=== PATIENT | female | born 1940 | race Caucasian/White ===

== ENCOUNTER 2023-11-23 14:06 | Inpatient (IN) | payer MEDICARE, OTHER ==
[2023-11-23] MEDS ORDERED: PIPERACILLIN-TAZOBACTAM 3.375 GM in SODIUM CHLORIDE 0.9% 100 ML IVPB STA (14:49)
[2023-11-23] MEDS ORDERED: AZITHROMYCIN 500 MG in SODIUM CHLORIDE 0.9% 250 ML IVPB STA (14:49)
[2023-11-23] MEDS ORDERED: PNEUMONIA PROTOCOL UTILIZED 1 EACH MISC PO PRN (14:49)
--- NOTE | 2023-11-23 14:49 | ED ---
General Adult HPI - General Chief complaint: Shortness of Breath Stated complaint: pneumonia bi-lateral Time Seen by Provider: 11/23/23 14:24 Source: patient, RN/MD, EMS, RN notes reviewed Mode of arrival: EMS Limitations: no limitations - History of Present Illness Initial comments: Patient is a pleasant 83-year-old female presenting to the emergency Department as a transfer from [place] [facility]. Patient came from jail. Patient was treated as an outpatient for pneumonia. Patient previously was on Rocephin and azithromycin. Patient did return to emergency department. Patient was given Zosyn. Patient was transferred for level of care. Patient amiss to having cough and some difficulty in breathing. Patient is overall a poor historian - Related Data Allergies Allergy/AdvReac Type Severity Reaction Status Date / Time No Known Allergies Allergy Verified 11/23/23 14:32 Review of Systems ROS Statement: Those systems with pertinent positive or pertinent negative responses have been documented in the HPI. ROS Other: All systems not noted in ROS Statement are negative. Constitutional: Denies: fever Eyes: Denies: eye pain ENT: Denies: ear pain Respiratory: Reports: as per HPI, cough, dyspnea Cardiovascular: Denies: chest pain Endocrine: Denies: fatigue Gastrointestinal: Denies: abdominal pain General Exam Limitations: no limitations General appearance: alert, in no apparent distress Head exam: Present: normocephalic Eye exam: Present: normal appearance Neck exam: Present: normal inspection Respiratory exam: Present: wheezes. Absent: respiratory distress Cardiovascular Exam: Present: regular rate, normal rhythm GI/Abdominal exam: Present: soft. Absent: tenderness Extremities exam: Present: normal inspection Neurological exam: Present: alert Psychiatric exam: Present: normal affect, normal mood Skin exam: Present: normal color Course Vital Signs 11/23/23 14:25 Temperature 97.5 F L Pulse Rate 57 L Respiratory 22 Rate Blood Pressure 124/70 O2 Sat by Pulse 96 Oximetry Medical Decision Making - Medical Decision Making Was pt. sent in by a medical professional or institution (KENDELL Thomas, COLLECTION SYSTEMS ADMINISTRATOR, urgent care, hospital, or jail...) When possible be specific @ -Patient was sent from nursing facility to Dr. Rosales to our facility Did you speak to anyone other than the patient for history (EMS, parent, family, police, friend...)? What history was obtained from this source @ -I did speak with transferring physician. Did you review nursing and triage notes (agree or disagree)? Why? @ -I reviewed and agree with nursing and triage notes Were old charts reviewed (outside hosp., previous admission, EMS record, old EKG, old radiological studies, urgent care reports/EKG's, jail records)? Report findings @ -Chart reviewed from [facility] Differential Diagnosis (chest pain, altered mental status, abdominal pain women, abdominal pain men, vaginal bleeding, weakness, fever, dyspnea, syncope, headache, dizziness, GI bleed, back pain, seizure, CVA, palpatations, mental health, musculoskeletal)? @ -Differential Dyspnea: Coronary syndrome, arrhythmia, tamponade, asthma, COPD, pulmonary embolism, pneumonia, pneumothorax, pulmonary effusion, anaphylaxis, diabetic ketoacidosis, flailed chest, pulmonary contusion, diaphragmatic rupture, anemia, neuromuscular, this is not meant to be an all-inclusive list. EKG interpreted by me (3pts min.). @ -As above X-rays interpreted by me (1pt min.). @ -None done CT interpreted by me (1pt min.). @ -None done U/S interpreted by me (1pt. min.). @ -None done What testing was considered but not performed or refused? (CT, X-rays, U/S, labs)? Why? @ -None What meds were considered but not given or refused? Why? @ -None Did you discuss the management of the patient with other professionals (pro fessionals i.e. , PA, COLLECTION SYSTEMS ADMINISTRATOR, lab, RT, psych nurse, social media marketing manager, instrument tech, teacher, food safety officer, counseling case manager)? Give summary @ -Case was discussed with Dr. Travis, who will admit covering doctor hollie Was smoking cessation discussed for >3mins.? @ -No Was critical care preformed (if so, how long)? @ -No Were there social determinants of health that impacted care today? How? (Homelessness, low income, unemployed, alcoholism, drug addiction, transportation, low edu. Level, literacy, decrease access to med. care, fdc, rehab)? @ -No Was there de-escalation of care discussed even if they declined (Discuss DNR or withdrawal of care, Hospice)? DNR status @ -No What co-morbidities impacted this encounter? (DM, HTN, Smoking, COPD, CAD, Cancer, CVA, ARF, Chemo, Hep., AIDS, mental health diagnosis, sleep apnea, morbid obesity)? @ -None Was patient admitted / discharged? Hospital course, mention meds given and route, prescriptions, significant lab abnormalities, going to OR and other pertinent info. @ -Patient failed outpatient Rocephin and azithromycin. Patient was given Zosyn prior to arrival. Patient will be admitted. Viral testing will be repeated as they reported -2 days ago. Patient will be admitted. Admission orders written. Undiagnosed new problem with uncertain prognosis? @ -No Drug Therapy requiring intensive monitoring for toxicity (Heparin, Nitro, Insulin, Cardizem)? @ -No Were any procedures done? @ -No Diagnosis/symptom? @ -Multifocal pneumonia Acute, or Chronic, or Acute on Chronic? @ -Acute Uncomplicated (without systemic symptoms) or Complicated (systemic symptoms)? @ -default Side effects of treatment? @ -No Exacerbation, Progression, or Severe Exacerbation? @ -No Poses a threat to life or bodily function? How? (Chest pain, [place], [place], pneumonia, PE, COPD, DKA, ARF, appy, cholecystitis, CVA, Diverticulitis, Homicidal, Suicidal, threat to staff... and all critical care pts) @ -No Disposition Clinical Impression: Multifocal pneumonia Disposition: ADMITTED IP TO THIS HOSP Is patient prescribed a controlled substance at d/c from ED?: No Referrals: None,Stated [Primary Care Provider] - 1-2 days Time of Disposition: 14:49
[2023-11-23] MEDS ORDERED: IPRATROPIUM-ALBUTEROL 3 ML NEB INHALATION PRN (14:54)
[2023-11-23] MEDS: IPRATROPIUM-ALBUTEROL 3 ML NEB INHALATION SCH ×2 (15:05→20:32)
[2023-11-23] MEDS: SODIUM CHLORIDE 0.9% 1,000 ML IV SCH ×2 (15:14→23:55)
[2023-11-23] MEDS ORDERED: bisacodyL 5 MG TABLET.DR PO PRN (21:59)
[2023-11-23] MEDS ORDERED: ACETAMINOPHEN TAB 325 MG TAB PO PRN (21:59)
[2023-11-23] MEDS ORDERED: LOPERAMIDE 2 MG CAP PO PRN (21:59)
--- NOTE | 2023-11-23 23:20 | XR ---
EXAM: XR Chest, 1 View CLINICAL HISTORY: ITS.REASON XR Reason: multifocal pneumonia from outside facility TECHNIQUE: Frontal view of the chest. COMPARISON: No relevant prior studies available. FINDINGS: Lungs: Mild opacity in the right midlung field, likely representing atelectasis. Correlate for mild pneumonia. Pleural space: Unremarkable. No pneumothorax. Heart: Unremarkable. No cardiomegaly. Mediastinum: Unremarkable. Normal mediastinal contour. Bones/joints: Unremarkable. No acute fracture. IMPRESSION: Mild opacity in the right midlung field, likely representing atelectasis. However, correlate for mild pneumonia.
[2023-11-23 23:30] LABS: Basophils % (A) 0 %; Eosinophils % (A) 0 %; HCT 36.2 % (34.0-46.0); HGB 11.9 gm/dL (11.4-16.0); Lymphocytes # (A) 1.1 k/uL (1.0-4.8); Lymphocytes % (A) 10 %; MCH 35.5 pg (25.0-35.0); MCHC 32.8 g/dL (31.0-37.0); MCV 108.3 fL (80.0-100.0); Macrocytosis Marked; Mean Platelet Volume 10.8; Monocytes # (A) 0.6 k/uL (0-1.0); Monocytes % (A) 6 %; Neutrophils # (A) 8.9 k/uL (1.3-7.7); Neutrophils % (A) 82 %; Platelet Count 233 k/uL (150-450); RBC 3.35 m/uL (3.80-5.40); RDW 13.7 % (11.5-15.5); WBC 10.9 k/uL (3.8-10.6)
[2023-11-23 23:46] LABS: ALT 21 U/L (4-34); AST 21 U/L (14-36); African American GFR (CKD) 50 (>60 ml/min/1.73 sqM); Albumin/Globulin Ratio 1.2; Alkaline Phosphatase 132 U/L (38-126); Anion Gap 9 mmol/L; Blood Urea Nitrogen 31 mg/dL (7-17); Calcium 8.8 mg/dL (8.4-10.2); Carbon Dioxide 27 mmol/L (22-30); Chloride 99 mmol/L (98-107); Globulin 2.6 g/dL; Glucose 245 mg/dL (74-99); Non-African American GFR(CKD) 43 (>60 ml/min/1.73 sqM); Potassium 4.7 mmol/L (3.5-5.1); Sodium 135 mmol/L (137-145); Total Bilirubin 0.3 mg/dL (0.2-1.3); Total Protein 5.6 g/dL (6.3-8.2)
[2023-11-23] MEDS: PIPERACILLIN-TAZOBACTAM 3.375 GM in SODIUM CHLORIDE 0.9% 100 ML IVPB SCH (23:52)
[2023-11-23] MEDS: traMADol 50 MG TAB PO SCH (23:56)
[2023-11-23] MEDS: ATORVASTATIN 40 MG TAB PO SCH (23:56)
[2023-11-23] MEDS: LORazepam 0.5 MG TAB PO SCH (23:56)
[2023-11-23] MEDS: CARBIDOPA-LEVODOPA 25-100 MG 1 EACH TAB PO SCH (23:56)
[2023-11-23] MEDS: GABAPENTIN 300 MG CAP PO SCH (23:56)
[2023-11-23] MEDS: SOTALOL 80 MG TAB PO SCH (23:57)
[2023-11-23] MEDS: AMITRIPTYLINE HCL 25 MG TAB PO SCH (23:57)
[2023-11-24 00:32] LABS: Glucose,Whole Blood 224 mg/dL (70-110)
[2023-11-24] MEDS: INSULIN ASPART (NovoLOG) 100 UNIT/ML VIAL SQ SCH ×5 (00:42→21:26)
[2023-11-24 06:18] LABS: Glucose,Whole Blood 134 mg/dL (70-110)
[2023-11-24] MEDS: ACARBOSE 25 MG TAB PO SCH ×3 (06:30→17:39)
[2023-11-24] MEDS: LEVOTHYROXINE 50 MCG TAB PO SCH (06:30)
[2023-11-24] MEDS: glipiZIDE 5 MG TAB PO SCH ×2 (06:30→17:40)
[2023-11-24] MEDS ORDERED: INSULIN ASPART (NovoLOG) 100 UNIT/ML VIAL SQ SCH (07:30)
--- NOTE | 2023-11-24 08:23 | XR ---
EXAMINATION TYPE: XR chest 1V DATE OF EXAM: 11/24/2023 7:15 AM CLINICAL INDICATION:Female, 83 years old with history of pneumonia; [facility] COMPARISON: Chest radiograph from one day prior. TECHNIQUE: XR chest 1V Frontal view of the chest. FINDINGS: Lungs/Pleura: There is no evidence of pleural effusion, focal consolidation, or pneumothorax. Pulmonary vascularity: Unremarkable. Heart/mediastinum: Cardiomediastinal silhouette is unremarkable. Atherosclerotic calcifications are seen in the aorta. Musculoskeletal: No acute osseous pathology. IMPRESSION: Low lung volumes with a generalized hazy appearance which could represent atelectasis versus pulmonar y edema correlate with serum BNP.
--- NOTE | 2023-11-24 08:34 | P.CNPUL ---
History of Present Illness Consult date: 11/24/23 Requesting physician: Kermit Oneill Reason for consult: dyspnea Chief complaint: Shortness of breath and wheezing History of present illness: I am seeing this patient in consultation today to 11/24/2023 on the general medical floor after she was transferred from [facility] with concerns of pneumonia. Patient is a 83-year-old white female with past medical history significant for atrial fibrillation, diabetes mellitus, neuropathy, hyperlipidemia, hypertension, hypothyroidism, among other things. Denies history of COPD or asthma. Patient does reside at [facility]. She is whee lchair-bound. Apparently, she was treated at [facility] for pneumonia about one and 1/2 weeks ago. She did not improve, and was sent to [facility]. CT of the chest at the outside facility showed low lung volumes, scattered groundglass opacities, a focal consolidation within the right middle lobe concerning for developing pneumonia or atelectasis, bibasilar atelectasis, trace pleural left effusion, and likely fluid within the right minor fissure. Patient was transferred to our facility yesterday afternoon. She is currently sitting up in bed, on 3 L per min nasal cannula, in no acute distress. She does not wear home oxygen. She does have persistent congested nonproductive cough. States that her cough was productive with yellow sputum earlier in the week. She denies any fevers, chest pains. She does become dyspneic even with talking. She has audible wheezing. Denies any nausea, vomiting, abdominal pain, diarrhea. Chest x-ray at our facility shows mild opacities in the right midlung likely representing atelectasis, however, underlying developing pneumonia could not be excluded. CBC shows a WBC count of 10.9, hemoglobin 11.9, hematocrit 36.2, platelets 233. BMP has a sodium of 135, potassium 4.7, chloride 99, serum bicarb 27, BUN 31, creatinine 1.18, glucose 245. NT proBNP at outside facility was low. And troponin was not elevated. Normal saline infusing at 100 ML's per hour. Procalcitonin level was 0.09. Negative for influenza, RSV, COVID-19. Urine Legionella antigen pending. Patient was empirically started on a combination of azithromycin and Zosyn. She is currently afebrile. Vital signs are stable. Review of Systems REVIEW OF SYSTEMS: CONSTITUTIONAL: Denies any recent significant weight loss or weight gain. Denies fevers. EYES: Denies change in vision. EARS, NOSE, MOUTH, THROAT: Denies headaches, denies sore throat. CARDIOVASCULAR: Denies chest pain, palpitations or syncopal episodes. RESPIRATORY: See HPI GASTROINTESTINAL: Denies change in appetite, abdominal pain, nausea and vomiting, or diarrhea GENITOURINARY: Denies hematuria, denies infections. MUSKULOSKELETAL: Denies pain, denies swelling. States that she is wheelchair- bound. INTEGUMENTARY: Denies rash, denies eczema. NEUROLOGICAL: Denies recent memory loss, no recent seizure activity. Admits chronic resting tremor PSYCHIATRIC: Denies anxiety, denies depression. HEMATOLOGIC/LYMPHATIC: Denies anemia, denies enlarged lymph node Past Medical History Past Medical History: Atrial Fibrillation, Diabetes Mellitus, Hearing Disorder / Deafness, Hyperlipidemia, Hypertension, Sleep Apnea/CPAP/BIPAP, Thyroid Disorder History of Any Multi-Drug Resistant Organisms: None Reported Past Surgical History: Back Surgery, Hysterectomy Additional Past Surgical History / Comment(s): Bilateral knee replacements, cardiac stents x 3 Past Anesthesia/Blood Transfusion Reactions: No Reported Reaction Past Psychological History: No Psychological Hx Reported Smoking Status: Never smoker Medications and Allergies Home Medications Medication Instructions Recorded Confirmed Type Acarbose 50 mg PO AC-TID 11/23/23 11/23/23 History Acetaminophen [Tylenol] 650 mg PO Q6H PRN 11/23/23 11/23/23 History Amitriptyline HCl [Elavil] 75 mg PO HS 11/23/23 11/23/23 History Artificial Tears-Hypromellose 1 drop BOTH EYES BID 11/23/23 11/23/23 History [Artificial Tear Drops] Aspirin 81 mg PO DAILY 11/23/23 11/23/23 History Atorvastatin [Lipitor] 40 mg PO HS 11/23/23 11/23/23 History Carbidopa-Levodopa 25-100 mg 1 tab PO TID 11/23/23 11/23/23 History [Sinemet 25-100] Cholecalciferol [Vitamin D3 (125 125 mcg PO DAILY 11/23/23 11/23/23 History Mcg = 5000 Iu)] Clopidogrel [Plavix] 75 mg PO DAILY 11/23/23 11/23/23 History Cyanocobalamin [Vitamin B-12] 2,000 mcg PO DAILY 11/23/23 11/23/23 History Cyanocobalamin [Vitamin B-12] 500 mcg PO DAILY 11/23/23 11/23/23 History Dulaglutide [Trulicity] 1.5 mg SQ FR 11/23/23 11/23/23 History Furosemide [Lasix] 10 mg PO DAILY 11/23/23 11/23/23 History Gabapentin 300 mg PO DAILY 11/23/23 11/23/23 History Gabapentin 600 mg PO HS 11/23/23 11/23/23 History Ipratropium-Albuterol Nebulize 3 ml INHALATION RT-DAILY PRN 11/23/23 11/23/23 History [Duoneb 0.5 mg-3 mg/3 ml Soln] Isosorbide Mononitrate ER [Imdur] 60 mg PO DAILY 11/23/23 11/23/23 History LORazepam [Ativan] 0.5 mg PO HS 11/23/23 11/23/23 History Lactobacillus Acidophilus 1 tab PO DAILY 11/23/23 11/23/23 History [Acidophilus] Levothyroxine Sodium [Synthroid] 50 mcg PO DAILY 11/23/23 11/23/23 History Loperamide [Imodium] 2 mg PO TID PRN 11/23/23 11/23/23 History Losartan [Cozaar] 50 mg PO DAILY 11/23/23 11/23/23 History Magnesium Hydroxide [Milk of 2,400 mg PO Q48H PRN 11/23/23 11/23/23 History Magnesia] Magnesium Oxide [Mag-Ox] 400 mg PO DAILY 11/23/23 11/23/23 History Sotalol [Betapace] 80 mg PO BID 11/23/23 11/23/23 History Thiamine [Vitamin B-1] 300 mg PO DAILY 11/23/23 11/23/23 History bisacodyL [Correctol] 10 mg PO DAILY PRN 11/23/23 11/23/23 History cefTRIAXone SODIUM [Ceftriaxone] 2 gm IV Q24H 11/23/23 11/23/23 History guaiFENesin SYRUP 100MG/5ML 200 mg PO Q6HR PRN 11/23/23 11/23/23 History [Robitussin] metFORMIN HCL [Glucophage] 500 mg PO BID 11/23/23 11/23/23 History predniSONE [Deltasone] 40 mg PO DAILY 11/23/23 11/23/23 History traMADol HCl [Ultram] 50 mg PO BID 11/23/23 11/23/23 History Allergies Allergy/AdvReac Type Severity Reaction Status Date / Time No Known Allergies Allergy Verified 11/23/23 15:31 Physical Exam Vitals: Vital Signs Temp Pulse Pulse Resp BP BP Pulse Ox 11/24/23 02:00 97.7 F 62 19 148/72 98 11/23/23 20:44 64 11/23/23 20:32 61 11/23/23 20:00 97.3 F L 63 19 116/44 97 11/23/23 18:51 83 22 147/71 96 11/23/23 15:22 60 11/23/23 15:06 55 L 11/23/23 14:25 97.5 F L 57 L 22 124/70 96 Intake and Output 11/23/23 11/23/23 11/24/23 14:59 22:59 06:59 Other: Weight 106.141 kg 106.141 kg GENERAL EXAM: Alert, 83-year-old obese white female, resting tremor, comfortable in no apparent distress. HEAD: Normocephalic and atraumatic EYES: Normal reaction of pupils, equal size. NOSE: Clear with pink turbinates. THROAT: No erythema or exudates. NECK: No masses, no JVD. CHEST: No chest wall deformity. LUNGS: Equal air entry with expiratory wheezes and rhonchi throughout. On 3 L/m nasal cannula. Congested cough. No conversational dyspnea or accessory muscle use.. CVS: S1 and S2 normal with no audible murmur, irregular rhythm. No extra heart sounds ABDOMEN: No hepatosplenomegaly, active bowel sounds, no guarding or rigidity. SPINE: No scoliosis or deformity SKIN: No rashes CENTRAL NERVOUS SYSTEM: No focal deficits, tone is normal in all 4 extremities. EXTREMITIES: There is no peripheral edema, clubbing, or cyanosis. Peripheral pulses are intact. Results - Laboratory Findings CBC and BMP: 11/23/23 22:50 11/23/23 22:50 Abnormal lab findings: Abnormal Labs 11/23/23 11/23/23 11/24/23 22:50 22:50 00:30 WBC 10.9 H RBC 3.35 L MCV 108.3 H MCH 35.5 H Neutrophils # 8.9 H Macrocytosis Marked A Sodium 135 L BUN 31 H Creatinine 1.18 H Glucose 245 H POC Glucose (mg/dL) 224 H Alkaline Phosphatase 132 H Total Protein 5.6 L Albumin 3.0 L - Diagnostic Findings Chest x-ray: image reviewed CT scan - chest: report reviewed Assessment and Plan Assessment: Acute hypoxemic respiratory failure, possibly secondary to acute bronchitis. Follow up chest x ray demonstrated low lung volumes and likely right midlung atelectasis. Procalcitonin level 0.09. Negative for influenza, RSV, COVID-19. Diabetes mellitus type 2, complicated with diabetic neuropathy Hyperlipidemia Hypertension History of paroxysmal atrial fibrillation Hypothyroidism Resting tremor Morbid obesity, with a BMI of 40.2 kg/m Plan: Patient's medications, labs, chest x-ray reviewed. Chest x-ray shows a mild opacity in the right mid lung field, likely representing atelectasis, developing pneumonia is felt to be less likely. Procalcitonin level was low at 0.09. Patient's currently empirically covered on a combination of azithromycin and Zosyn. Negative for influenza, RSV, COVID-19. Urine Legionella antigen pending. Continue supplemental oxygen and bronchodilators Robitussin added for cough. We will continue to follow and further recommendations are forthcoming. I have personally seen and examined the patient, performed the documentation and the assessment and plan as written. Number of minutes spent on the visit:20 Time with Patient: Greater than 30
[2023-11-24] MEDS ORDERED: CYANOCOBALAMIN 500 MCG TAB PO SCH (09:00)
[2023-11-24] MEDS ORDERED: predniSONE 20 MG TAB PO SCH (09:00)
[2023-11-24] MEDS: IPRATROPIUM-ALBUTEROL 3 ML NEB INHALATION SCH ×4 (09:26→21:41)
[2023-11-24] MEDS: SOTALOL 80 MG TAB PO SCH ×2 (09:38→21:24)
[2023-11-24] MEDS: CARBIDOPA-LEVODOPA 25-100 MG 1 EACH TAB PO SCH ×3 (09:38→22:00)
[2023-11-24] MEDS: CLOPIDOGREL 75 MG TAB PO SCH (09:38)
[2023-11-24] MEDS: ASPIRIN 81 MG PO SCH (09:38)
[2023-11-24] MEDS: PIPERACILLIN-TAZOBACTAM 3.375 GM in SODIUM CHLORIDE 0.9% 100 ML IVPB SCH ×3 (09:38→23:49)
[2023-11-24] MEDS: THIAMINE 100 MG TAB PO SCH (09:39)
[2023-11-24] MEDS: ISOSORBIDE MONONITRATE ER 60 MG TAB.ER.24H PO SCH (09:39)
[2023-11-24] MEDS: CYANOCOBALAMIN 500 MCG TAB PO SCH (09:39)
[2023-11-24] MEDS: traMADol 50 MG TAB PO SCH ×2 (09:40→22:08)
[2023-11-24] MEDS: GABAPENTIN 300 MG CAP PO SCH ×2 (09:40→21:25)
[2023-11-24] MEDS: CHOLECALCIFEROL 125 MCG (5000 IU) TABLET PO SCH (09:40)
[2023-11-24] MEDS: MAGNESIUM OXIDE 400 MG TAB PO SCH (09:40)
[2023-11-24 12:00] LABS: Glucose,Whole Blood 193 mg/dL (70-110)
[2023-11-24] MEDS ORDERED: MAGNESIUM HYDROXIDE 2,400 MG/30 ML CUP PO PRN (12:37)
[2023-11-24] MEDS ORDERED: methylPREDNISolone SOD SUCCI 125 MG/2 ML VIAL IV SCH (12:45)
--- NOTE | 2023-11-24 13:16 | HP ---
HISTORY AND PHYSICAL CHIEF COMPLAINT: Shortness of breath and pneumonia. HISTORY OF PRESENT ILLNESS: This is an 83-year-old woman with a past medical history of multiple medical problems, being followed in [facility] in [place], was treated as outpatient with pneumonia. The patient received Rocephin, Zithromax. The patient was admitted and transferred to [facility] for further evaluation and treatment. Chest x- ray showed bilateral pneumonia, the patient was started on Zosyn. The patient is short of breath and slightly tremulous at this time. There is no history of any fever, rigors, or chills. PAST MEDICAL HISTORY: Reviewed include atrial fibrillation, diabetes mellitus, rest of the history and rest of the chart is also reviewed. HOME MEDICATIONS: Reviewed include Ultram, doses and rest of medications reviewed. ALLERGIES: None. FAMILY HISTORY: No history of heart disease or strokes in the family. SOCIAL HISTORY: No history of smoking or alcohol. REVIEW OF SYSTEMS: A 14-point review is negative except as mentioned earlier. PHYSICAL EXAMINATION: VITAL SIGNS: Pulse is 58, blood pressure 138/60, and respirations 21. HEENT: Conjunctivae normal. NECK: No jugular venous distention. CARDIOVASCULAR: S1, S2 muffled. RESPIRATIONS: Diminished at the bases, bilateral scattered rhonchi, markedly increased. ABDOMEN: Soft, nontender. LEGS: No edema, no swelling. NERVOUS SYSTEM: No focal deficit. LABORATORY DATA: WBC 10.8, MCV 108.3. Other labs are noted. Chest x-ray reviewed personally. ASSESSMENT: 1. Possible COPD acute exacerbation with multifocal pneumonia, possibly gram-negative with failure of outpatient treatment. 2. Atrial fibrillation. 3. Diabetes mellitus, type 2. 4. Hyperlipidemia. 5. Hypertension. 6. Sleep apnea. 7. Multiple medical issues including back surgery. 8. History of CAD, stent. RECOMMENDATIONS AND DISCUSSION: This 83-year-old woman presented with multiple complex medical issues, we will monitor the patient closely. We will intensify the bronchodilator treatment, empiric antibiotics, follow the cultures. I would also recommend D-dimer if it is positive. Recommend the CT angio of the chest. The COVID has been negative, PCR has been negative and further recommendations to follow, see orders for details. Prognosis guarded. Home medications will be continued once they are confirmed. MMODL / IJN: [id number] /
[2023-11-24] MEDS: methylPREDNISolone SOD SUCCI 125 MG/2 ML VIAL IV SCH ×3 (13:31→23:48)
[2023-11-24] MEDS: SODIUM CHLORIDE 0.9% 1,000 ML IV SCH (13:32)
[2023-11-24] MEDS: ARTIFICIAL TEARS-HYPROMELLOSE DROPS 15 ML BTL BOTH EYES SCH ×2 (13:32→21:25)
[2023-11-24 13:47] LABS: African American GFR (CKD) 65 (>60 ml/min/1.73 sqM); Anion Gap 10 mmol/L; Blood Urea Nitrogen 28 mg/dL (7-17); Calcium 9.4 mg/dL (8.4-10.2); Carbon Dioxide 25 mmol/L (22-30); Chloride 101 mmol/L (98-107); Glucose 223 mg/dL (74-99); Non-African American GFR(CKD) 56 (>60 ml/min/1.73 sqM); Sodium 136 mmol/L (137-145)
[2023-11-24 13:49] LABS: Potassium 5.1 mmol/L (3.5-5.1)
--- NOTE | 2023-11-24 13:52 | P.CNPUL ---
History of Present Illness Consult date: 11/24/23 Reason for consult: dyspnea History of present illness: I am seeing this patient in consultation today to 11/24/2023 on the general medical floor after she was transferred from [facility] with concerns of pneumonia. Patient is a 83-year-old white female with past medical history significant for atrial fibrillation, diabetes mellitus, neuropathy, hyperlipidemia, hypertension, hypothyroidism, among other things. Denies history of COPD or asthma. Patient does reside at [facility]. She is wheelchair-bound. Apparently, she was treated at [facility] for pneumonia about one and 1/2 weeks ago. She did not improve, and was sent to [facility]. CT of the chest at the outside facility showed low lung volumes, scattered groundglass opacities, a focal consolidation within the right middle lobe concerning for developing pneumonia or atelectasis, bibasilar atelectasis, trace pleural left effusion, and likely fluid within the right minor fissure. Patient was transferred to our facility yesterday afternoon. She is currently sitting up in bed, on 3 L per min nasal cannula, in no acute distress. She does not wear home oxygen. She does have persistent congested nonproductive cough. States that her cough was productive with yellow sputum earlier in the week. She denies any fevers, chest pains. She does become dyspneic even with talking. She has audible wheezing. Denies any nausea, vomiting, abdominal pain, diarrhea. Chest x-ray at our facility shows mild opacities in the right midlung likely representing atelectasis, however, underlying developing pneumonia could not be excluded. CBC shows a WBC count of 10.9, hemoglobin 11.9, hematocrit 36.2, platelets 233. BMP has a sodium of 135, potassium 4.7, chloride 99, serum bicarb 27, BUN 31, creatinine 1.18, glucose 245. NT proBNP at outside facility was low. And troponin was not elevated. Normal saline infusing at 100 ML's per hour. Procalcitonin level was 0.09. Negative for influenza, RSV, COVID-19. Urine Legionella antigen pending. Patient was empirically started on a combination of azithromycin and Zosyn. She is currently afebrile. Vital signs are stable. Repeat chest x-ray from today shows some atelectatic changes in the right midlung and the left lower lobe. I also had a chance to review the CAT scan of the chest that was done and [facility], and the patient has some atelectatic changes in the right midlung and some chronic atelectatic change in the left lower lobe. No evidence of any pulmonary infection or p neumonia at this point in time. The patient has a low pro-calcitonin level. Nevertheless, the patient is bronchospastic and wheezy. Denies having any previous history of smoking. She is essentially poor historian and she is a [facility] resident who resides in [facility]. Due to concern for pneumonia, the patient was started on a combination of Zosyn and Zithromax. She was also started on DuoNeb nebulized treatments [id number]. Outpatient medications been resumed. The patient is also on Lasix 10 mg by mouth daily. Review of Systems REVIEW OF SYSTEMS: CONSTITUTIONAL: Denies any recent significant weight loss or weight gain. Ian es fevers. EYES: Denies change in vision. EARS, NOSE, MOUTH, THROAT: Denies headaches, denies sore throat. CARDIOVASCULAR: Denies chest pain, palpitations or syncopal episodes. RESPIRATORY: See HPI GASTROINTESTINAL: Denies change in appetite, abdominal pain, nausea and vomiting, or diarrhea GENITOURINARY: Denies hematuria, denies infections. MUSKULOSKELETAL: Denies pain, denies swelling. States that she is wheelchair- bound. INTEGUMENTARY: Denies rash, denies eczema. NEUROLOGICAL: Denies recent memory loss, no recent seizure activity. Admits chronic resting tremor PSYCHIATRIC: Denies anxiety, denies depression. HEMATOLOGIC/LYMPHATIC: Denies anemia, denies enlarged lymph node Past Medical History Past Medical History: Atrial Fibrillation, Diabetes Mellitus, Hearing Disorder / Deafness, Hyperlipidemia, Hypertension, Sleep Apnea/CPAP/BIPAP, Thyroid Disorder History of Any Multi-Drug Resistant Organisms: None Reported Past Surgical History: Back Surgery, Hysterectomy Additional Past Surgical History / Comment(s): Bilateral knee replacements, cardiac stents x 3 Past Anesthesia/Blood Transfusion Reactions: No Reported Reaction Past Psychological History: No Psychological Hx Reported Smoking Status: Never smoker Medications and Allergies Home Medications Medication Instructions Recorded Confirmed Type Acarbose 50 mg PO AC-TID 11/23/23 11/23/23 History Acetaminophen [Tylenol] 650 mg PO Q6H PRN 11/23/23 11/23/23 History Amitriptyline HCl [Elavil] 75 mg PO HS 11/23/23 11/23/23 History Artificial Tears-Hypromellose 1 drop BOTH EYES BID 11/23/23 11/23/23 History [Artificial Tear Drops] Aspirin 81 mg PO DAILY 11/23/23 11/23/23 History Atorvastatin [Lipitor] 40 mg PO HS 11/23/23 11/23/23 History Carbidopa-Levodopa 25-100 mg 1 tab PO TID 11/23/23 11/23/23 History [Sinemet 25-100] Cholecalciferol [Vitamin D3 (125 125 mcg PO DAILY 11/23/23 11/23/23 History Mcg = 5000 Iu)] Clopidogrel [Plavix] 75 mg PO DAILY 11/23/23 11/23/23 History Cyanocobalamin [Vitamin B-12] 2,000 mcg PO DAILY 11/23/23 11/23/23 History Cyanocobalamin [Vitamin B-12] 500 mcg PO DAILY 11/23/23 11/23/23 History Dulaglutide [Trulicity] 1.5 mg SQ FR 11/23/23 11/23/23 History Furosemide [Lasix] 10 mg PO DAILY 11/23/23 11/23/23 History Gabapentin 300 mg PO DAILY 11/23/23 11/23/23 History Gabapentin 600 mg PO HS 11/23/23 11/23/23 History Ipratropium-Albuterol Nebulize 3 ml INHALATION RT-DAILY PRN 11/23/23 11/23/23 History [Duoneb 0.5 mg-3 mg/3 ml Soln] Isosorbide Mononitrate ER [Imdur] 60 mg PO DAILY 11/23/23 11/23/23 History LORazepam [Ativan] 0.5 mg PO HS 11/23/23 11/23/23 History Lactobacillus Acidophilus 1 tab PO DAILY 11/23/23 11/23/23 History [Acidophilus] Levothyroxine Sodium [Synthroid] 50 mcg PO DAILY 11/23/23 11/23/23 History Loperamide [Imodium] 2 mg PO TID PRN 11/23/23 11/23/23 History Losartan [Cozaar] 50 mg PO DAILY 11/23/23 11/23/23 History Magnesium Hydroxide [Milk of 2,400 mg PO Q48H PRN 11/23/23 11/23/23 History Magnesia] Magnesium Oxide [Mag-Ox] 400 mg PO DAILY 11/23/23 11/23/23 History Sotalol [Betapace] 80 mg PO BID 11/23/23 11/23/23 History Thiamine [Vitamin B-1] 300 mg PO DAILY 11/23/23 11/23/23 History bisacodyL [Correctol] 10 mg PO DAILY PRN 11/23/23 11/23/23 History cefTRIAXone SODIUM [Ceftriaxone] 2 gm IV Q24H 11/23/23 11/23/23 History guaiFENesin SYRUP 100MG/5ML 200 mg PO Q6HR PRN 11/23/23 11/23/23 History [Robitussin] metFORMIN HCL [Glucophage] 500 mg PO BID 11/23/23 11/23/23 History predniSONE [Deltasone] 40 mg PO DAILY 11/23/23 11/23/23 History traMADol HCl [Ultram] 50 mg PO BID 11/23/23 11/23/23 History Allergies Allergy/AdvReac Type Severity Reaction Status Date / Time No Known Allergies Allergy Verified 11/23/23 15:31 Physical Exam Vitals: Vital Signs Temp Pulse Pulse Resp BP BP Pulse Ox 11/24/23 02:00 97.7 F 62 19 148/72 98 11/23/23 20:44 64 11/23/23 20:32 61 11/23/23 20:00 97.3 F L 63 19 116/44 97 11/23/23 18:51 83 22 147/71 96 11/23/23 15:22 60 11/23/23 15:06 55 L 11/23/23 14:25 97.5 F L 57 L 22 124/70 96 Intake and Output 11/23/23 11/23/23 11/24/23 14:59 22:59 06:59 Other: Weight 106.141 kg 106.141 kg GENERAL EXAM: Alert, 83-year-old obese white female, resting tremor, comfortable in no apparent distress. HEAD: Normocephalic and atraumatic EYES: Normal reaction of pupils, equal size. NOSE: Clear with pink turbinates. THROAT: No erythema or exudates. NECK: No masses, no JVD. CHEST: No chest wall deformity. LUNGS: Equal air entry with expiratory wheezes and rhonchi throughout. On 3 L/m nasal cannula. Congested cough. No conversational dyspnea or accessory muscle use.. CVS: S1 and S2 normal with no audible murmur, irregular rhythm. No extra heart sounds ABDOMEN: No hepatosplenomegaly, active bowel sounds, no guarding or rigidity. SPINE: No scoliosis or deformity SKIN: No rashes CENTRAL NERVOUS SYSTEM: No focal deficits, tone is normal in all 4 extremities. EXTREMITIES: There is no peripheral edema, clubbing, or cyanosis. Peripheral pulses are intact. Results - Laboratory Findings CBC and BMP: 11/23/23 22:50 11/23/23 22:50 Abnormal lab findings: Abnormal Labs 11/23/23 11/23/23 11/24/23 22:50 22:50 00:30 WBC 10.9 H RBC 3.35 L MCV 108.3 H MCH 35.5 H Neutrophils # 8.9 H Macrocytosis Marked A Sodium 135 L BUN 31 H Creatinine 1.18 H Glucose 245 H POC Glucose (mg/dL) 224 H Alkaline Phosphatase 132 H Total Protein 5.6 L Albumin 3.0 L - Diagnostic Findings Chest x-ray: image reviewed CT scan - chest: report reviewed Assessment and Plan Assessment: Acute on chronic dyspnea with limited atelectatic changes in the right midlung and the left lower lobe without evidence of any consolidation with air space disease. Suspect also changes of atelectatic rather than infectious in nature. The vital screening came back negative and the patient has a nonelevated pro- calcitonin level. The antibiotic coverage at this point is empiric and the patient was covered with a combination of Zithromax and Zosyn. Nevertheless, the patient has a congested cough with active bronchospasm or wheezing. Rule out underlying sick bronchitis. Acute hypoxemic respiratory failure, currently on 2 L of action by nasal cannula Diabetes mellitus type 2, complicated with diabetic neuropathy Hyperlipidemia Hypertension History of paroxysmal atrial fibrillation Hypothyroidism Resting tremor Morbid obesity, with a BMI of 40.2 kg/m Plan: Continue bronchodilators Put the patient on 40 mg of IV Solu-Medrol every 8 hours and monitor the blood sugars Provide the patient senna spirometer Attempt to collect a sputum sample to me what continue the same antibiotic coverage. Low likelihood for infections Suggest a swallow evaluation Robitussin for cough and congestion CAT scan of the chest was reviewed. Chest x-ray was reviewed. We'll continue to follow. Resume all medications from home Past Medical History Past Medical History: Atrial Fibrillation, Diabetes Mellitus, Hearing Disorder / Deafness, Hyperlipidemia, Hypertension, Sleep Apnea/CPAP/BIPAP, Thyroid Disorder History of Any Multi-Drug Resistant Organisms: None Reported Past Surgical History: Back Surgery, Hysterectomy Additional Past Surgical History / Comment(s): Bilateral knee replacements, car diac stents x 3 Past Anesthesia/Blood Transfusion Reactions: No Reported Reaction Past Psychological History: No Psychological Hx Reported Smoking Status: Never smoker Medications and Allergies Home Medications Medication Instructions Recorded Confirmed Type Acarbose 50 mg PO AC-TID 11/23/23 11/23/23 History Acetaminophen [Tylenol] 650 mg PO Q6H PRN 11/23/23 11/23/23 History Amitriptyline HCl [Elavil] 75 mg PO HS 11/23/23 11/23/23 History Artificial Tears-Hypromellose 1 drop BOTH EYES BID 11/23/23 11/23/23 History [Artificial Tear Drops] Aspirin 81 mg PO DAILY 11/23/23 11/23/23 History Atorvastatin [Lipitor] 40 mg PO HS 11/23/23 11/23/23 History Carbidopa-Levodopa 25-100 mg 1 tab PO TID 11/23/23 11/23/23 History [Sinemet 25-100] Cholecalciferol [Vitamin D3 (125 125 mcg PO DAILY 11/23/23 11/23/23 History Mcg = 5000 Iu)] Clopidogrel [Plavix] 75 mg PO DAILY 11/23/23 11/23/23 History Cyanocobalamin [Vitamin B-12] 2,000 mcg PO DAILY 11/23/23 11/23/23 History Cyanocobalamin [Vitamin B-12] 500 mcg PO DAILY 11/23/23 11/23/23 History Dulaglutide [Trulicity] 1.5 mg SQ FR 11/23/23 11/23/23 History Furosemide [Lasix] 10 mg PO DAILY 11/23/23 11/23/23 History Gabapentin 300 mg PO DAILY 11/23/23 11/23/23 History Gabapentin 600 mg PO HS 11/23/23 11/23/23 History Ipratropium-Albuterol Nebulize 3 ml INHALATION RT-DAILY PRN 11/23/23 11/23/23 History [Duoneb 0.5 mg-3 mg/3 ml Soln] Isosorbide Mononitrate ER [Imdur] 60 mg PO DAILY 11/23/23 11/23/23 History LORazepam [Ativan] 0.5 mg PO HS 11/23/23 11/23/23 History Lactobacillus Acidophilus 1 tab PO DAILY 11/23/23 11/23/23 History [Acidophilus] Levothyroxine Sodium [Synthroid] 50 mcg PO DAILY 11/23/23 11/23/23 History Loperamide [Imodium] 2 mg PO TID PRN 11/23/23 11/23/23 History Losartan [Cozaar] 50 mg PO DAILY 11/23/23 11/23/23 History Magnesium Hydroxide [Milk of 2,400 mg PO Q48H PRN 11/23/23 11/23/23 History Magnesia] Magnesium Oxide [Mag-Ox] 400 mg PO DAILY 11/23/23 11/23/23 History Sotalol [Betapace] 80 mg PO BID 11/23/23 11/23/23 History Thiamine [Vitamin B-1] 300 mg PO DAILY 11/23/23 11/23/23 History bisacodyL [Correctol] 10 mg PO DAILY PRN 11/23/23 11/23/23 History cefTRIAXone SODIUM [Ceftriaxone] 2 gm IV Q24H 11/23/23 11/23/23 History guaiFENesin SYRUP 100MG/5ML 200 mg PO Q6HR PRN 11/23/23 11/23/23 History [Robitussin] metFORMIN HCL [Glucophage] 500 mg PO BID 11/23/23 11/23/23 History predniSONE [Deltasone] 40 mg PO DAILY 11/23/23 11/23/23 History traMADol HCl [Ultram] 50 mg PO BID 11/23/23 11/23/23 History Allergies Allergy/AdvReac Type Severity Reaction Status Date / Time No Known Allergies Allergy Verified 11/23/23 15:31 Physical Exam Vitals: Vital Signs Temp Pulse Pulse Resp BP BP Pulse Ox 11/24/23 12:37 60 11/24/23 07:08 97.5 F L 58 L 21 138/66 97 11/24/23 02:00 97.7 F 62 19 148/72 98 11/23/23 20:44 64 11/23/23 20:32 61 11/23/23 20:00 97.3 F L 63 19 116/44 97 11/23/23 18:51 83 22 147/71 96 11/23/23 15:22 60 11/23/23 15:06 55 L 11/23/23 14:25 97.5 F L 57 L 22 124/70 96 Intake and Output 11/23/23 11/24/23 11/24/23 22:59 06:59 14:59 Intake Total 1000 Output Total 250 Balance 750 Intake: Intake, IV Titration 1000 Amount Azithromycin 500 mg In 100 Sodium Chloride 0.9% 250 ml @ 250 mls/hr IVPB ONCE STA Rx#:[id number] Piperacillin-Tazobactam 3 900 .375 gm In Sodium Chloride 0.9% 100 ml @ 200 mls/hr IVPB ONCE STA Rx#:[id number] Output: Urine 250 Other: Weight 106.141 kg Results - Laboratory Findings CBC and BMP: 11/23/23 22:50 11/23/23 22:50 Abnormal lab findings: Abnormal Labs 11/23/23 11/23/23 11/24/23 22:50 22:50 00:30 WBC 10.9 H RBC 3.35 L MCV 108.3 H MCH 35.5 H Neutrophils # 8.9 H Macrocytosis Marked A Sodium 135 L BUN 31 H Creatinine 1.18 H Glucose 245 H POC Glucose (mg/dL) 224 H Alkaline Phosphatase 132 H Total Protein 5.6 L Albumin 3.0 L 11/24/23 11/24/23 06:18 11:59 WBC RBC MCV MCH Neutrophils # Macrocytosis Sodium BUN Creatinine Glucose POC Glucose (mg/dL) 134 H 193 H Alkaline Phosphatase Total Protein Albumin
[2023-11-24] MEDS: AZITHROMYCIN 500 MG in SODIUM CHLORIDE 0.9% 250 ML IVPB SCH (14:31)
[2023-11-24 16:59] LABS: Glucose,Whole Blood 361 mg/dL (70-110)
[2023-11-24 21:05] LABS: Glucose,Whole Blood 318 mg/dL (70-110)
[2023-11-24] MEDS: AMITRIPTYLINE HCL 25 MG TAB PO SCH (21:23)
[2023-11-24] MEDS: LORazepam 0.5 MG TAB PO SCH (21:23)
[2023-11-24] MEDS: ATORVASTATIN 40 MG TAB PO SCH (21:24)
[2023-11-24] MEDS: HEPARIN SODIUM,PORCINE 5,000 UNIT/ML 1 ML VIAL SQ SCH (21:26)
[2023-11-24] MEDS: BUDESONIDE 0.5 MG/2 ML NEBU INHALATION SCH (21:41)
[2023-11-24] MEDS: guaiFENesin SYRUP 100MG/5ML 200 MG/10 ML CUP PO PRN (22:02)
[2023-11-25] MEDS: SODIUM CHLORIDE 0.9% 1,000 ML IV SCH (05:20)
[2023-11-25 06:17] LABS: Glucose,Whole Blood 240 mg/dL (70-110)
[2023-11-25] MEDS: INSULIN ASPART (NovoLOG) 100 UNIT/ML VIAL SQ SCH ×4 (06:29→21:32)
[2023-11-25] MEDS: methylPREDNISolone SOD SUCCI 125 MG/2 ML VIAL IV SCH ×3 (06:30→17:28)
[2023-11-25] MEDS: LEVOTHYROXINE 50 MCG TAB PO SCH (06:30)
[2023-11-25] MEDS: glipiZIDE 5 MG TAB PO SCH ×2 (06:30→17:29)
[2023-11-25] MEDS: ACARBOSE 25 MG TAB PO SCH ×3 (06:30→17:29)
[2023-11-25] MEDS: IPRATROPIUM-ALBUTEROL 3 ML NEB INHALATION SCH ×4 (07:25→18:31)
[2023-11-25] MEDS: BUDESONIDE 0.5 MG/2 ML NEBU INHALATION SCH ×2 (07:25→18:31)
[2023-11-25] MEDS: HEPARIN SODIUM,PORCINE 5,000 UNIT/ML 1 ML VIAL SQ SCH ×2 (08:32→21:03)
[2023-11-25] MEDS: THIAMINE 100 MG TAB PO SCH (08:32)
[2023-11-25] MEDS: CHOLECALCIFEROL 125 MCG (5000 IU) TABLET PO SCH (08:32)
[2023-11-25] MEDS: GABAPENTIN 300 MG CAP PO SCH ×2 (08:33→21:04)
[2023-11-25] MEDS: CYANOCOBALAMIN 500 MCG TAB PO SCH (08:33)
[2023-11-25] MEDS: ISOSORBIDE MONONITRATE ER 60 MG TAB.ER.24H PO SCH (08:33)
[2023-11-25] MEDS: ARTIFICIAL TEARS-HYPROMELLOSE DROPS 15 ML BTL BOTH EYES SCH (08:34)
[2023-11-25] MEDS: CLOPIDOGREL 75 MG TAB PO SCH (08:34)
[2023-11-25] MEDS: CARBIDOPA-LEVODOPA 25-100 MG 1 EACH TAB PO SCH ×3 (08:34→21:05)
[2023-11-25] MEDS: MAGNESIUM OXIDE 400 MG TAB PO SCH (08:34)
[2023-11-25] MEDS: ASPIRIN 81 MG PO SCH (08:34)
[2023-11-25] MEDS: PIPERACILLIN-TAZOBACTAM 3.375 GM in SODIUM CHLORIDE 0.9% 100 ML IVPB SCH ×2 (08:35→16:28)
[2023-11-25] MEDS: SOTALOL 80 MG TAB PO SCH ×2 (08:35→21:04)
[2023-11-25] MEDS: FUROSEMIDE 10 MG TAB PO SCH (08:36)
[2023-11-25] MEDS: LACTOBACILLUS ACIDOPHILUS/PECT 1 EACH CAPSULE PO SCH (08:42)
[2023-11-25] MEDS: AZITHROMYCIN 500 MG in SODIUM CHLORIDE 0.9% 250 ML IVPB SCH (08:43)
[2023-11-25] MEDS: traMADol 50 MG TAB PO SCH (08:43)
[2023-11-25] MEDS: LOSARTAN 50 MG TAB PO SCH (08:43)
[2023-11-25] MEDS ORDERED: DEXTROSE 50% SYRINGE 50 ML IVP PRN ×2 (10:06)
[2023-11-25 10:58] LABS: HCT 34.6 % (37.2-46.3); HGB 11.1 g/dL (12.0-15.0); MCH 34.4 pg (27.0-32.0); MCHC 32.1 g/dL (32.0-37.0); MCV 107.1 FL (80.0-97.0); Mean Platelet Volume 12.5 FL (9.5-12.2); NRBC Per 100 WBC 0 X 10*3/uL (0.00-0.01); Platelet Count 209 X 10*3/uL (140-440); RBC 3.23 X 10*6/uL (4.10-5.20); RDW 13.5 % (11.5-14.5)
[2023-11-25 11:13] LABS: Calcium 9.2 mg/dL (8.7-10.3); Carbon Dioxide 26.8 mmol/L (21.6-31.8); Chloride 102 mmol/L (96-109); Glucose 217 mg/dL (70-110); Potassium 4.9 mmol/L (3.5-5.5); Sodium 136 mmol/L (135-145)
[2023-11-25 11:26] LABS: Glucose,Whole Blood 246 mg/dL (70-110)
[2023-11-25 11:52] LABS: Basophils # (A) 0.01 X 10*3/uL (0.00-0.10); Basophils % (A) 0.1 %; Eosinophils # (A) 0 X 10*3/uL (0.04-0.35); Eosinophils % (A) 0 %; Lymphocytes # (A) 0.81 X 10*3/uL (0.90-5.00); Lymphocytes % (A) 7.6 %; Macrocytosis (M) 2+; Monocytes % (A) 4.7 %; Neutrophils # (A) 9.34 X 10*3/uL (1.80-7.70); Neutrophils % (A) 87.2 %
[2023-11-25] MEDS: INSULIN DETEMIR (LEVEMIR) 100 UNIT/ML SYR SQ SCH (12:42)
--- NOTE | 2023-11-25 13:59 | P.PN ---
Subjective Progress Note Date: 11/25/23 I am seeing this patient in consultation today to 11/24/2023 on the general medical floor after she was transferred from [facility] with concerns of pneumonia. Patient is a 83-year-old white female with past medical history significant for atrial fibrillation, diabetes mellitus, neuropathy, hy perlipidemia, hypertension, hypothyroidism, among other things. Denies history of COPD or asthma. Patient does reside at [facility]. She is wheelchair- bound. Apparently, she was treated at [facility] for pneumonia about one and 1/2 weeks ago. She did not improve, and was sent to [facility]. CT of the chest at the outside facility showed low lung volumes, scattered groundglass opacities, a focal consolidation within the right middle lobe concerning for developing pneumonia or atelectasis, bibasilar atelectasis, trace pleural left effusion, and likely fluid within the right minor fissure. Patient was transferred to our facility yesterday afternoon. She is currently sitting up in bed, on 3 L per min nasal cannula, in no acute distress. She does not wear home oxygen. She does have persistent congested nonproductive cough. States that her cough was productive with yellow sputum earlier in the week. She denies any fevers, chest pains. She does become dyspneic even with talking. She has audible wheezing. Denies any nausea, vomiting, abdominal pain, diarrhea. Chest x-ray at our facility shows mild opacities in the right midlung likely representing atelectasis, however, underlying developing pneumonia could not be excluded. CBC shows a WBC count of 10.9, hemoglobin 11.9, hematocrit 36.2, platelets 233. BMP has a sodium of 135, potassium 4.7, chloride 99, serum bicarb 27, BUN 31, creatinine 1.18, glucose 245. NT proBNP at outside facility was low. And troponin was not elevated. Normal saline infusing at 100 ML's per hour. Procalcitonin level was 0.09. Negative for influenza, RSV, COVID-19. Urine Legionella antigen pending. Patient was empirically started on a combination of azithromycin and Zosyn. She is currently afebrile. Vital signs are stable. Repeat chest x-ray from today shows some atelectatic changes in the right midlung and the left lower lobe. I also had a chance to review the CAT scan of the chest that was done and [facility], and the patient has some atelectatic changes in the right midlung and some chronic atelectatic change in the left lower lobe. No evidence of any pulmonary infection or pneumonia at this point in time. The patient has a low pro-calcitonin level. Nevertheless, the patient is bronchospastic and wheezy. Denies having any previous history of smoking. She is essentially poor historian and she is a custodial resident who resides in [facility]. Due to concern for pneumonia, the patient was started on a combination of Zosyn and Zithromax. She was also started on DuoNeb nebulized treatments [id number]. Outpatient medications been resumed. The patient is also on Lasix 10 mg by mouth daily. On today's evaluation of 11/25/2023, lymphs seeing the patient for a follow-up. The patient is clinically stable. Nontender worsening in the rest or status. In fact, the patient is feeling slightly short of breath. She has a congested cough. Unable to bring up much of sputum. She is currently on broad-spectrum antibiotics and the patient is on a combination of Zosyn and vancomycin. She is also on bronchodilators and steroids and IV Solu-Medrol is being admitted at a dose of 60 mg IV push every [address] hours[address] CAT scan of the chest showed some atelectatic changes in lung bases bilaterally. No clear consolidation or airspace disease. She is afebrile. She has a echoes of 10 with a hemoglobin of 11.1 and a platelet count of 219. Sodium is at 136, BUN is at 22 with a creatinine of 1 and the rest of the electrolytes are within normal limits. She is unable to give a sputum sample. The patient is on 3 L of O2 nasal cannula with a pulse ox of 99%. She is hemodynamically stable. Objective - Vital Signs Vital signs: Vital Signs Temp 96.8 F L 11/25/23 07:34 Pulse 52 L 11/25/23 07:41 Resp 19 11/25/23 07:34 BP 159/65 11/25/23 07:34 Pulse Ox 100 11/25/23 07:34 FiO2 Intake & Output 11/24/23 11/25/23 11/25/23 18:59 06:59 18:59 Output Total 200 Balance -200 Output: Urine 200 Other: Voiding Method External Catheter External Catheter # Voids 2 # Bowel Movements 1 - Exam GENERAL EXAM: Alert, 83-year-old obese white female, resting tremor, comfortable in no apparent distress. The patient remains on 3 L of oxygen nasal cannula HEAD: Normocephalic and atraumatic EYES: Normal reaction of pupils, equal size. NOSE: Clear with pink turbinates. THROAT: No erythema or exudates. NECK: No masses, no JVD. CHEST: No chest wall deformity. LUNGS: Equal air entry with expiratory wheezes and rhonchi throughout. Congested cough. No conversational dyspnea or accessory muscle use.. CVS: S1 and S2 normal with no audible murmur, irregular rhythm. No extra heart sounds ABDOMEN: No hepatosplenomegaly, active bowel sounds, no guarding or rigidity. SPINE: No scoliosis or deformity SKIN: No rashes CENTRAL NERVOUS SYSTEM: No focal deficits, tone is normal in all 4 extremities. EXTREMITIES: There is no peripheral edema, clubbing, or cyanosis. Peripheral pulses are intact. - Labs CBC & Chem 7: 11/25/23 06:15 11/25/23 06:15 Labs: Abnormal Lab Results - Last 24 Hours (Table) 11/24/23 11/24/23 11/24/23 Range/Units 11:59 12:58 12:58 WBC (4.50-10.00) X 10*3/uL RBC (4.10-5.20) X 10*6/uL Hgb (12.0-15.0) g/dL Hct (37.2-46.3) % MCV (80.0-97.0) FL MCH (27.0-32.0) pg MPV (9.5-12.2) FL D-Dimer 0.77 H (<0.60) mg/L FEU Sodium 136 L (137-145) mmol/L BUN 28 H (7-17) mg/dL Est GFR (CKD-EPI) (>=60) BUN/Creatinine Ratio (12.00-20.00) Ratio Glucose 223 H (74-99) mg/dL POC Glucose (mg/dL) 193 H (70-110) mg/dL 11/24/23 11/24/23 11/25/23 Range/Units 16:58 21:03 06:15 WBC 10.70 H (4.50-10.00) X 10*3/uL RBC 3.23 L (4.10-5.20) X 10*6/uL Hgb 11.1 L (12.0-15.0) g/dL Hct 34.6 L (37.2-46.3) % MCV 107.1 H (80.0-97.0) FL MCH 34.4 H (27.0-32.0) pg MPV 12.5 H (9.5-12.2) FL D-Dimer (<0.60) mg/L FEU Sodium (137-145) mmol/L BUN (7-17) mg/dL Est GFR (CKD-EPI) (>=60) BUN/Creatinine Ratio (12.00-20.00) Ratio Glucose (74-99) mg/dL POC Glucose (mg/dL) 361 H 318 H (70-110) mg/dL 11/25/23 11/25/23 11/25/23 Range/Units 06:15 06:15 11:25 WBC (4.50-10.00) X 10*3/uL RBC (4.10-5.20) X 10*6/uL Hgb (12.0-15.0) g/dL Hct (37.2-46.3) % MCV (80.0-97.0) FL MCH (27.0-32.0) pg MPV (9.5-12.2) FL D-Dimer (<0.60) mg/L FEU Sodium (137-145) mmol/L BUN (7-17) mg/dL Est GFR (CKD-EPI) 56 L (>=60) BUN/Creatinine Ratio 22.00 H (12.00-20.00) Ratio Glucose 217 H (74-99) mg/dL POC Glucose (mg/dL) 240 H 246 H (70-110) mg/dL Assessment and Plan Plan: Acute on chronic dyspnea with limited atelectatic changes in the right midlung and the left lower lobe without evidence of any consolidation with air space disease. Suspect also changes of atelectatic rather than infectious in nature. The vital screening came back negative and the patient has a nonelevated pro- calcitonin level. The antibiotic coverage at this point is empiric and the patient was covered with a combination of Zithromax and Zosyn. Nevertheless, the patient has a congested cough with active bronchospasm or wheezing. Rule out underlying tracheobronchitis in addition to a component of tracheal bronchomalacia. Acute hypoxemic respiratory failure, currently on 3 L of action by nasal cannula Diabetes mellitus type 2, complicated with diabetic neuropathy Hyperlipidemia Hypertension History of paroxysmal atrial fibrillation Hypothyroidism Resting tremor Morbid obesity, with a BMI of 40.2 kg/m Plan: The patient may have some tracheal bronchomalacia was mucus retention. She has atelectatic change in the lung bases. She reports some modest improvement. Clinically, she is stable and she is more coherent compared to yesterday. Continue bronchodilators Put the patient on 60 mg mg of IV Solu-Medrol every 6 hours and monitor the blood sugars Provide the patient senna spirometer Attempt to collect a sputum sample to me what continue the same antibiotic coverage. Low likelihood for infections Suggest a swallow evaluation Robitussin for cough and congestion CAT scan of the chest was reviewed. Chest x-ray was reviewed. We'll continue to follow. Resume all medications from home May consider bronchoscopy at the later stage if no improvement in her cough and chest congestion.
[2023-11-25] MEDS: guaiFENesin SYRUP 100MG/5ML 200 MG/10 ML CUP PO PRN (16:28)
[2023-11-25 16:49] LABS: Glucose,Whole Blood 249 mg/dL (70-110)
[2023-11-25 20:07] LABS: Glucose,Whole Blood 276 mg/dL (70-110)
[2023-11-25] MEDS: AMITRIPTYLINE HCL 25 MG TAB PO SCH (21:04)
[2023-11-25] MEDS: ATORVASTATIN 40 MG TAB PO SCH (21:05)
[2023-11-25] MEDS: LORazepam 0.5 MG TAB PO SCH (21:05)
--- NOTE | 2023-11-25 23:27 | P.PN ---
Subjective Progress Note Date: 11/25/23 Patient is an 83 year old female admitted for pneumonia sent from [place]. Patient was treated outpatient and had minimal improvement. Chest xray reveals a right mild lung infiltrate with atelectasis at the left lung base. Patient has poor inspiratory effort and weak cough unable to clear the secretions. She remains on zosyn and pulmonary following. Patient will be considered for bronchoscopy. Viral testing negative for rsv, influenza or covid, legionella is negative and mycoplasma currently pending. Remains on room air. Review of Systems Constitutional: Denied any fatigue denied any fever. Cardio vascular: denied any chest pain, palpitations Gastrointestinal: denied any nausea, vomiting, diarrhea Pulmonary: Denied any shortness of breath cough Neurologic denied any new focal deficits All inpatient medications were reviewed and appropriate changes in these medications as dictated in the interval history and assessment and plan. PHYSICAL EXAMINATION: GENERAL: The patient is alert and oriented x3, not in any acute distress. Well developed, well nourished. HEENT: Pupils are round and equally reacting to light. EOMI. No scleral icterus. No conjunctival pallor. Normocephalic, atraumatic. No pharyngeal erythema. No thyromegaly. CARDIOVASCULAR: S1 and S2 present. No murmurs, rubs, or gallops. PULMONARY: Bibasilar crackles and scattered wheezing. Congested cough. ABDOMEN: Soft, nontender, nondistended, normoactive bowel sounds. No palpable organomegaly. MUSCULOSKELETAL: No joint swelling or deformity. EXTREMITIES: No cyanosis, clubbing, or pedal edema. NEUROLOGICAL: Gross neurological examination did not reveal any focal deficits. Diffuse weakness. SKIN: No rashes. Assessment and Plan Bilateral atelectasis in the right mid lung and left lower lobe, patient continu es on empiric antibiotic coverage although procalcitonin level is normal. Acute tracheobronchitis being treated with systemic steroids and patient is encouraged to use incentive spirometer 10 x an hour while awake. Patient is reaching 500. Acute hypoxemic respiratory failure secondary to above History of atrial fibrillation, paroxysmal not anticoagulated Diabetes Mellitus type 2 continues on sliding scale insulin and levemir will be added for the steroid induced hyperglycemia Hyperlipidemia continues on lipitor Hypertension continues on antihypertensives Sleep apnea Hypothyroidism Obesity History of coronary artery disease and prior cardiac stenting GI prophylaxis DVT prophylaxis: Subcu heparin PT/OT consultation in place. Pulmonary services following. The impression and plan of care has been dictated by Jenifer Ibarra Nurse Practitioner as directed. Dr. Diogenes MD I have performed a history and physical examination and medical decision making of this patient, discussed the same with the dictator, and agree with the dictators assessment and plan as written, documented as a scribe. Based on total visit time, I have performed more than 50% of this visit. Objective - Vital Signs Vital signs: Vital Signs Temp 96.8 F L 11/25/23 07:34 Pulse 52 L 11/25/23 07:41 Resp 19 11/25/23 07:34 BP 159/65 11/25/23 07:34 Pulse Ox 100 11/25/23 07:34 FiO2 Intake & Output 11/24/23 11/25/23 11/25/23 18:59 06:59 18:59 Output Total 200 Balance -200 Output: Urine 200 Other: Voiding Method External Catheter External Catheter # Voids 2 # Bowel Movements 1 - Labs CBC & Chem 7: 11/25/23 06:15 11/25/23 06:15 Labs: Abnormal Lab Results - Last 24 Hours (Table) 11/24/23 11/24/23 11/24/23 Range/Units 11:59 12:58 12:58 D-Dimer 0.77 H (<0.60) mg/L FEU Sodium 136 L (137-145) mmol/L BUN 28 H (7-17) mg/dL Glucose 223 H (74-99) mg/dL POC Glucose (mg/dL) 193 H (70-110) mg/dL 11/24/23 11/24/23 11/25/23 Range/Units 16:58 21:03 06:15 D-Dimer (<0.60) mg/L FEU Sodium (137-145) mmol/L BUN (7-17) mg/dL Glucose (74-99) mg/dL POC Glucose (mg/dL) 361 H 318 H 240 H (70-110) mg/dL Assessment and Plan Time with Patient: Less than 30
[2023-11-26] MEDS: methylPREDNISolone SOD SUCCI 125 MG/2 ML VIAL IV SCH ×5 (00:10→23:25)
[2023-11-26] MEDS: PIPERACILLIN-TAZOBACTAM 3.375 GM in SODIUM CHLORIDE 0.9% 100 ML IVPB SCH ×4 (00:11→23:23)
[2023-11-26] MEDS: ARTIFICIAL TEARS-HYPROMELLOSE DROPS 15 ML BTL BOTH EYES SCH ×3 (00:12→20:41)
[2023-11-26] MEDS: traMADol 50 MG TAB PO SCH ×3 (00:12→20:40)
[2023-11-26] MEDS: SODIUM CHLORIDE 0.9% 1,000 ML IV SCH ×2 (02:23→23:31)
[2023-11-26] MEDS: guaiFENesin SYRUP 100MG/5ML 200 MG/10 ML CUP PO PRN (05:00)
[2023-11-26 05:36] LABS: Glucose,Whole Blood 207 mg/dL (70-110)
[2023-11-26] MEDS: LEVOTHYROXINE 50 MCG TAB PO SCH (06:48)
[2023-11-26] MEDS: INSULIN DETEMIR (LEVEMIR) 100 UNIT/ML SYR SQ SCH ×2 (06:48→21:00)
[2023-11-26] MEDS: INSULIN ASPART (NovoLOG) 100 UNIT/ML VIAL SQ SCH ×5 (06:48→20:38)
[2023-11-26] MEDS: glipiZIDE 5 MG TAB PO SCH ×2 (06:48→16:43)
[2023-11-26] MEDS: ACARBOSE 25 MG TAB PO SCH ×3 (06:49→16:43)
[2023-11-26] MEDS ORDERED: NON FORMULARY DRUG (Dulaglutide [Trulicity] 1.5 MG/0.5 ML Each) SQ SCH (09:00)
[2023-11-26] MEDS: BUDESONIDE 0.5 MG/2 ML NEBU INHALATION SCH ×2 (09:12→21:14)
[2023-11-26] MEDS: IPRATROPIUM-ALBUTEROL 3 ML NEB INHALATION SCH ×4 (09:12→21:15)
[2023-11-26] MEDS: CYANOCOBALAMIN 500 MCG TAB PO SCH (10:21)
[2023-11-26] MEDS: THIAMINE 100 MG TAB PO SCH (10:21)
[2023-11-26] MEDS: ASPIRIN 81 MG PO SCH (10:21)
[2023-11-26] MEDS: ISOSORBIDE MONONITRATE ER 60 MG TAB.ER.24H PO SCH (10:21)
[2023-11-26] MEDS: GABAPENTIN 300 MG CAP PO SCH ×2 (10:21→20:38)
[2023-11-26] MEDS: MAGNESIUM OXIDE 400 MG TAB PO SCH (10:21)
[2023-11-26] MEDS: CLOPIDOGREL 75 MG TAB PO SCH (10:21)
[2023-11-26] MEDS: CHOLECALCIFEROL 125 MCG (5000 IU) TABLET PO SCH (10:22)
[2023-11-26] MEDS: SOTALOL 80 MG TAB PO SCH ×2 (10:23→20:40)
[2023-11-26] MEDS: HEPARIN SODIUM,PORCINE 5,000 UNIT/ML 1 ML VIAL SQ SCH ×2 (10:23→20:39)
[2023-11-26] MEDS: LOSARTAN 50 MG TAB PO SCH (10:23)
[2023-11-26] MEDS: CARBIDOPA-LEVODOPA 25-100 MG 1 EACH TAB PO SCH ×3 (10:24→20:39)
[2023-11-26] MEDS: LACTOBACILLUS ACIDOPHILUS/PECT 1 EACH CAPSULE PO SCH (10:24)
[2023-11-26] MEDS: FUROSEMIDE 10 MG TAB PO SCH (10:26)
[2023-11-26 11:42] LABS: Glucose,Whole Blood 225 mg/dL (70-110)
--- NOTE | 2023-11-26 15:46 | P.PN ---
Subjective Progress Note Date: 11/26/23 Patient is an 83 year old female admitted for pneumonia sent from [place]. Patient was treated outpatient and had minimal improvement. Chest xray reveals a right mild lung infiltrate with atelectasis at the left lung base. Patient has poor inspiratory effort and weak cough unable to clear the secretions. She remains on zosyn and pulmonary following. Patient will be considered for bronchoscopy. Viral testing negative for rsv, influenza or covid, legionella is negative and mycoplasma currently pending. Remains on room air. 11/26/2023 Patient is evaluated today sitting up in bed. Has increased congestion since yesterday. Remains on IV zosyn and IV solumedrol. Patient was evaluated by speech therapy diet down graded to dysphagia level 3 chopped and unable to rule out silent aspiration. For this reason patient going for MBS today. Review of Systems Constitutional: Denied any fatigue denied any fever. Cardio vascular: denied any chest pain, palpitations Gastrointestinal: denied any nausea, vomiting, diarrhea Pulmonary: Denies shortness of breath, reports cough Neurologic denied any new focal deficits All inpatient medications were reviewed and appropriate changes in these medications as dictated in the interval history and assessment and plan. PHYSICAL EXAMINATION: GENERAL: The patient is alert and oriented x3, not in any acute distress. Well developed, well nourished. HEENT: Pupils are round and equally reacting to light. EOMI. No scleral icterus. No conjunctival pallor. Normocephalic, atraumatic. No pharyngeal erythema. No thyromegaly. CARDIOVASCULAR: S1 and S2 present. No murmurs, rubs, or gallops. PULMONARY: Bibasilar crackles and scattered wheezing. Congested cough. ABDOMEN: Soft, nontender, nondistended, normoactive bowel sounds. No palpable organomegaly. MUSCULOSKELETAL: No joint swelling or deformity. EXTREMITIES: No cyanosis, clubbing, or pedal edema. NEUROLOGICAL: Gross neurological examination did not reveal any focal deficits. Diffuse weakness. SKIN: No rashes. Assessment and Plan -Bilateral atelectasis in the right mid lung and left lower lobe, patient continues on empiric antibiotic coverage although procalcitonin level is normal. Acute tracheobronchitis being treated with systemic steroids and patient is encouraged to use incentive spirometer 10 x an hour while awake. Patient is reaching 500. -Acute hypoxemic respiratory failure secondary to above wean oxygen as tolerated patient with oxygen saturations of 98% on 3L of oxygen. -Dysphagia downgraded to chopped diet, unable to rule out silent aspiration with bed side swallow evaluation and patient scheduled to undergo MBS today. -History of atrial fibrillation, paroxysmal not anticoagulated -Diabetes Mellitus type 2 continues on sliding scale insulin and levemir for the steroid induced hyperglycemia -Hyperlipidemia continues on lipitor -Hypertension continues on antihypertensives -Sleep apnea -Hypothyroidism -Obesity -History of coronary artery disease and prior cardiac stenting GI prophylaxis DVT prophylaxis: Subcu heparin PT/OT consultation in place. Pulmonary services following. Patient will undergo MBS today. Aspiration precautions in place. [facility] to [facility] when stable. The impression and plan of care has been dictated by Jenifer Ibarra Nurse Practitioner as directed. Dr. Diogenes MD I have performed a history and physical examination and medical decision making of this patient, discussed the same with the dictator, and agree with the dictators assessment and plan as written, documented as a scribe. Based on total visit time, I have performed more than 50% of this visit. Objective - Vital Signs Vital signs: Vital Signs Temp 97.6 F 11/26/23 07:01 Pulse 52 L 11/26/23 09:28 Resp 21 11/26/23 07:01 BP 148/72 11/26/23 09:28 Pulse Ox 100 11/26/23 07:01 FiO2 Intake & Output 11/25/23 11/26/23 11/26/23 18:59 06:59 18:59 Other: # Voids 1 3 1 # Bowel Movements 1 1 1 - Labs CBC & Chem 7: 11/25/23 06:15 11/25/23 06:15 Labs: Abnormal Lab Results - Last 24 Hours (Table) 11/23/23 11/25/23 11/25/23 Range/Units 22:50 06:15 06:15 WBC 10.70 H (4.50-10.00) X 10*3/uL RBC 3.23 L (4.10-5.20) X 10*6/uL Hgb 11.1 L (12.0-15.0) g/dL Hct 34.6 L (37.2-46.3) % MCV 107.1 H (80.0-97.0) FL MCH 34.4 H (27.0-32.0) pg MPV 12.5 H (9.5-12.2) FL Neutrophils # 9.34 H (1.80-7.70) X 10*3/uL Lymphocytes # 0.81 L (0.90-5.00) X 10*3/uL Eosinophils # 0 L (0.04-0.35) X 10*3/uL Macrocytosis (manual) 2+ A Est GFR (CKD-EPI) 56 L (>=60) BUN/Creatinine Ratio 22.00 H (12.00-20.00) Ratio Glucose 217 H (70-110) mg/dL POC Glucose (mg/dL) (70-110) mg/dL Hemoglobin A1c 7.4 H (<=6.0) % 11/25/23 11/25/23 11/25/23 Range/Units 11:25 16:48 20:06 WBC (4.50-10.00) X 10*3/uL RBC (4.10-5.20) X 10*6/uL Hgb (12.0-15.0) g/dL Hct (37.2-46.3) % MCV (80.0-97.0) FL MCH (27.0-32.0) pg MPV (9.5-12.2) FL Neutrophils # (1.80-7.70) X 10*3/uL Lymphocytes # (0.90-5.00) X 10*3/uL Eosinophils # (0.04-0.35) X 10*3/uL Macrocytosis (manual) Est GFR (CKD-EPI) (>=60) BUN/Creatinine Ratio (12.00-20.00) Ratio Glucose (70-110) mg/dL POC Glucose (mg/dL) 246 H 249 H 276 H (70-110) mg/dL Hemoglobin A1c (<=6.0) % 11/26/23 Range/Units 05:34 WBC (4.50-10.00) X 10*3/uL RBC (4.10-5.20) X 10*6/uL Hgb (12.0-15.0) g/dL Hct (37.2-46.3) % MCV (80.0-97.0) FL MCH (27.0-32.0) pg MPV (9.5-12.2) FL Neutrophils # (1.80-7.70) X 10*3/uL Lymphocytes # (0.90-5.00) X 10*3/uL Eosinophils # (0.04-0.35) X 10*3/uL Macrocytosis (manual) Est GFR (CKD-EPI) (>=60) BUN/Creatinine Ratio (12.00-20.00) Ratio Glucose (70-110) mg/dL POC Glucose (mg/dL) 207 H (70-110) mg/dL Hemoglobin A1c (<=6.0) % Assessment and Plan Time with Patient: Less than 30
--- NOTE | 2023-11-26 16:00 | FL ---
EXAMINATION TYPE: FL barium swallow w video DATE OF EXAM: 11/26/2023 CLINICAL HISTORY: 83-year-old female dysphasia. Patient with pneumonia, assess for aspiration. Dyspha marizol. TECHNIQUE: Deglutition study is performed utilizing thin liquid barium, nectar thick liquid barium, barium thick applesauce, and barium coated cracker. COMPARISON: None. Total fluoroscopy time: 2 minutes 25 seconds Total images: None. Real-time fluoroscopy support was provided to speech pathology. DOSE AREA PRODUCT (DAP) UGY*M,MGY*CM: 279.45 FINDINGS: There is intermittent penetration with thin liquids. Some premature spill into the piriform sinuses u faraz drinking thin liquids with a straw. No aspiration is seen with any of the tested consistencies. IMPRESSION: Intermittent penetration with thin liquids. Premature spill of thin liquids via a straw. No aspiratio n seen. Please refer to speech therapist notes for further details if necessary.
[2023-11-26 16:21] LABS: Glucose,Whole Blood 209 mg/dL (70-110)
--- NOTE | 2023-11-26 16:56 | P.PN ---
Subjective Progress Note Date: 11/26/23 I am seeing this patient in consultation today to 11/24/2023 on the general medical floor after she was transferred from [facility] with concerns of pneumonia. Patient is a 83-year-old white female with past medical history significant for atrial fibrillation, diabetes mellitus, neuropathy, hy perlipidemia, hypertension, hypothyroidism, among other things. Denies history of COPD or asthma. Patient does reside at [facility]. She is wheelchair- bound. Apparently, she was treated at [facility] for pneumonia about one and 1/2 weeks ago. She did not improve, and was sent to [facility]. CT of the chest at the outside facility showed low lung volumes, scattered groundglass opacities, a focal consolidation within the right middle lobe concerning for developing pneumonia or atelectasis, bibasilar atelectasis, trace pleural left effusion, and likely fluid within the right minor fissure. Patient was transferred to our facility yesterday afternoon. She is currently sitting up in bed, on 3 L per min nasal cannula, in no acute distress. She does not wear home oxygen. She does have persistent congested nonproductive cough. States that her cough was productive with yellow sputum earlier in the week. She denies any fevers, chest pains. She does become dyspneic even with talking. She has audible wheezing. Denies any nausea, vomiting, abdominal pain, diarrhea. Chest x-ray at our facility shows mild opacities in the right midlung likely representing atelectasis, however, underlying developing pneumonia could not be excluded. CBC shows a WBC count of 10.9, hemoglobin 11.9, hematocrit 36.2, platelets 233. BMP has a sodium of 135, potassium 4.7, chloride 99, serum bicarb 27, BUN 31, creatinine 1.18, glucose 245. NT proBNP at outside facility was low. And troponin was not elevated. Normal saline infusing at 100 ML's per hour. Procalcitonin level was 0.09. Negative for influenza, RSV, COVID-19. Urine Legionella antigen pending. Patient was empirically started on a combination of azithromycin and Zosyn. She is currently afebrile. Vital signs are stable. Repeat chest x-ray from today shows some atelectatic changes in the right midlung and the left lower lobe. I also had a chance to review the CAT scan of the chest that was done and [facility], and the patient has some atelectatic changes in the right midlung and some chronic atelectatic change in the left lower lobe. No evidence of any pulmonary infection or pneumonia at this point in time. The patient has a low pro-calcitonin level. Nevertheless, the patient is bronchospastic and wheezy. Denies having any previous history of smoking. She is essentially poor historian and she is a shelter resident who resides in [facility]. Due to concern for pneumonia, the patient was started on a combination of Zosyn and Zithromax. She was also started on DuoNeb nebulized treatments [id number]. Outpatient medications been resumed. The patient is also on Lasix 10 mg by mouth daily. On today's evaluation of 11/25/2023, lymphs seeing the patient for a follow-up. The patient is clinically stable. Nontender worsening in the rest or status. In fact, the patient is feeling slightly short of breath. She has a congested cough. Unable to bring up much of sputum. She is currently on broad-spectrum antibiotics and the patient is on a combination of Zosyn and vancomycin. She is also on bronchodilators and steroids and IV Solu-Medrol is being admitted at a dose of 60 mg IV push every 6 hours. CAT scan of the chest showed some atelectatic changes in lung bases bilaterally. No clear consolidation or airspace disease. She is afebrile. She has a echoes of 10 with a hemoglobin of 11.1 and a platelet count of 219. Sodium is at 136, BUN is at 22 with a creatinine of 1 and the rest of the electrolytes are within normal limits. She is unable to give a sputum sample. The patient is on 3 L of O2 nasal cannula with a pulse ox of 99%. She is hemodynamically stable. On today's evaluation of 11/26/2023, the patient is being seen for a follow-up. No new complaints. Continues to receive bronchodilators. Continues to receive steroids. Continues to be on broad-spectrum antibiotics. A swallow evaluation will be also done today to evaluate her swallow. Objective - Vital Signs Vital signs: Vital Signs Temp 97.9 F 11/26/23 13:28 Pulse 53 L 11/26/23 13:28 Resp 21 11/26/23 13:28 BP 176/72 11/26/23 13:28 Pulse Ox 98 11/26/23 13:28 FiO2 Intake & Output 11/25/23 11/26/23 11/26/23 18:59 06:59 18:59 Other: # Voids 1 3 2 # Bowel Movements 1 1 1 - Exam GENERAL EXAM: Alert, 83-year-old obese white female, resting tremor, comfortable in no apparent distress. The patient remains on 3 L of oxygen nasal cannula HEAD: Normocephalic and atraumatic EYES: Normal reaction of pupils, equal size. NOSE: Clear with pink turbinates. THROAT: No erythema or exudates. NECK: No masses, no JVD. CHEST: No chest wall deformity. LUNGS: Equal air entry with expiratory wheezes and rhonchi throughout. Co ngested cough. No conversational dyspnea or accessory muscle use.. CVS: S1 and S2 normal with no audible murmur, irregular rhythm. No extra heart sounds ABDOMEN: No hepatosplenomegaly, active bowel sounds, no guarding or rigidity. SPINE: No scoliosis or deformity SKIN: No rashes CENTRAL NERVOUS SYSTEM: No focal deficits, tone is normal in all 4 extremities. EXTREMITIES: There is no peripheral edema, clubbing, or cyanosis. Peripheral pulses are intact. - Labs CBC & Chem 7: 11/25/23 06:15 11/25/23 06:15 Labs: Abnormal Lab Results - Last 24 Hours (Table) 11/23/23 11/25/23 11/25/23 Range/Units 22:50 16:48 20:06 POC Glucose (mg/dL) 249 H 276 H (70-110) mg/dL Hemoglobin A1c 7.4 H (<=6.0) % 11/26/23 11/26/23 Range/Units 05:34 11:41 POC Glucose (mg/dL) 207 H 225 H (70-110) mg/dL Hemoglobin A1c (<=6.0) % Assessment and Plan Plan: Acute on chronic dyspnea with limited atelectatic changes in the right midlung and the left lower lobe without evidence of any consolidation with air space disease. Suspect also changes of atelectatic rather than infectious in nature. The vital screening came back negative and the patient has a nonelevated pro- calcitonin level. The antibiotic coverage at this point is empiric and the patient was covered with a combination of Zithromax and Zosyn. Nevertheless, the patient has a congested cough with active bronchospasm or wheezing. Rule out underlying tracheobronchitis in addition to a component of tracheal bronchomalacia. No major change in overall condition since yesterday Acute hypoxemic respiratory failure, currently on 3 L of action by nasal cannula Diabetes mellitus type 2, complicated with diabetic neuropathy Hyperlipidemia Hypertension History of paroxysmal atrial fibrillation Hypothyroidism Resting tremor Morbid obesity, with a BMI of 40.2 kg/m Plan: Completed swallow evaluation Continue same treatment The patient may have some tracheal bronchomalacia was mucus retention. She has atelectatic change in the lung bases. She reports some modest improvement. Clinically, she is stable and she is more coherent compared to yesterday. Continue bronchodilators Put the patient on 60 mg mg of IV Solu-Medrol every 6 hours and monitor the blood sugars Provide the patient senna spirometer Attempt to collect a sputum sample to me what continue the same antibiotic coverage. Low likelihood for infections Suggest a swallow evaluation Robitussin for cough and congestion CAT scan of the chest was reviewed. Chest x-ray was reviewed. We'll continue to follow. Resume all medications from home May consider bronchoscopy at the later stage if no improvement in her cough and chest congestion.
--- NOTE | 2023-11-26 17:03 | CDI ---
Documentation Clarification Form Date: 11/26/2023 04:36:12 PM From: Deyanira Hoffman RN, CCDS Phone: [phone] Admit Date: 11/23/2023 02:54:00 PM Patient Name: Jania Serrato Visit Number: [id number] Discharge Date: ATTENTION: The Clinical Documentation Specialists (CDI) and [facility] Coding Staff appreciate your assistance in clarifying documentation. Please respond to the clarification below the line at the bottom and electronically sign. The CDI & [facility] Coding staff will review the response and follow-up if needed. Please note: Queries are made part of the Legal Health Record. If you have any questions, please contact the author of this message via ITS. Dr. Les Shetty Conflicting documentation has been found in the medical record. As attending physician, please provide clarification. 11/23 H/P: Possible COPD acute exacerbation with multifocal pneumonia, possible gram-negative with failure of outpatient treatment. 11/25 Attending: Bilateral atelectasis in the right mid lung and left lower lobe, patient continues on empiric antibiotic coverage although procalcitonin level is normal. Acute tracheobronchitis being treated with systemic steroids. 11/14 Pulmonary consult: Acute hypoxemic respiratory failure, possibly secondary to acute bronchitis. Chest x-ray shows a mild opacity in the right mid lung field, likely representing atelectasis, developing pneumonia is felt to be less likely. Procalcitonin level was low at 0.09. Patient's currently empirically covered on a combination of azithromycin and Zosyn. History/Risk Factors: Diabetes Mellitus type 2, Hypothyroidism, Obesity, coronary artery disease atrial fibrillation, paroxysmal Clinical Indicators: Transfer from [place] was treated as an outpatient for pneumonia. 11/23 CXR right mild lung infiltrate with atelectasis at the left lung base. VS: 124/70 57 22 97.5 96% 3/L NC 11/23 Labs WBC 10.9 BUN 31 CR 1.18 Procalcitonin 0.09 Treatment: Zosyn 3.375 MG IVPB Q8 HRS 11/23-11/26 Azithromycin 500 MG IVPB Once 11/23 then daily 11/24-11/25 Please clarify which diagnosis is most appropriate: [ ] Pneumonia ruled in (specify type) [ x] Pneumonia ruled out [ ] Other (please specify) [ ] Unable to determine (Template Last Revised: January 2021) MTDD
[2023-11-26 19:37] LABS: Glucose,Whole Blood 282 mg/dL (70-110)
[2023-11-26] MEDS: AMITRIPTYLINE HCL 25 MG TAB PO SCH (20:39)
[2023-11-26] MEDS: LORazepam 0.5 MG TAB PO SCH (20:40)
[2023-11-26] MEDS: ATORVASTATIN 40 MG TAB PO SCH (20:40)
[2023-11-27 05:47] LABS: Glucose,Whole Blood 182 mg/dL (70-110)
[2023-11-27] MEDS: ACARBOSE 25 MG TAB PO SCH ×3 (06:48→17:07)
[2023-11-27] MEDS: LEVOTHYROXINE 50 MCG TAB PO SCH (06:48)
[2023-11-27] MEDS: methylPREDNISolone SOD SUCCI 125 MG/2 ML VIAL IV SCH ×4 (06:48→23:41)
[2023-11-27] MEDS: glipiZIDE 5 MG TAB PO SCH ×2 (06:49→17:07)
[2023-11-27] MEDS: INSULIN DETEMIR (LEVEMIR) 100 UNIT/ML SYR SQ SCH ×2 (06:49→21:18)
[2023-11-27] MEDS: INSULIN ASPART (NovoLOG) 100 UNIT/ML VIAL SQ SCH ×7 (07:49→21:18)
[2023-11-27] MEDS: PIPERACILLIN-TAZOBACTAM 3.375 GM in SODIUM CHLORIDE 0.9% 100 ML IVPB SCH ×3 (09:18→23:41)
[2023-11-27] MEDS: THIAMINE 100 MG TAB PO SCH (09:25)
[2023-11-27] MEDS: ASPIRIN 81 MG PO SCH (09:25)
[2023-11-27] MEDS: HEPARIN SODIUM,PORCINE 5,000 UNIT/ML 1 ML VIAL SQ SCH ×2 (09:25→21:18)
[2023-11-27] MEDS: GABAPENTIN 300 MG CAP PO SCH ×2 (09:26→21:17)
[2023-11-27] MEDS: CLOPIDOGREL 75 MG TAB PO SCH (09:26)
[2023-11-27] MEDS: CYANOCOBALAMIN 500 MCG TAB PO SCH (09:26)
[2023-11-27] MEDS: LACTOBACILLUS ACIDOPHILUS/PECT 1 EACH CAPSULE PO SCH (09:26)
[2023-11-27] MEDS: LOSARTAN 50 MG TAB PO SCH (09:26)
[2023-11-27] MEDS: CHOLECALCIFEROL 125 MCG (5000 IU) TABLET PO SCH (09:26)
[2023-11-27] MEDS: traMADol 50 MG TAB PO SCH ×2 (09:26→21:17)
[2023-11-27] MEDS: FUROSEMIDE 10 MG TAB PO SCH (09:26)
[2023-11-27] MEDS: CARBIDOPA-LEVODOPA 25-100 MG 1 EACH TAB PO SCH ×3 (09:27→21:17)
[2023-11-27] MEDS: ARTIFICIAL TEARS-HYPROMELLOSE DROPS 15 ML BTL BOTH EYES SCH ×2 (09:27→21:19)
[2023-11-27] MEDS: MAGNESIUM OXIDE 400 MG TAB PO SCH (09:27)
[2023-11-27] MEDS: ISOSORBIDE MONONITRATE ER 60 MG TAB.ER.24H PO SCH (09:30)
[2023-11-27] MEDS: IPRATROPIUM-ALBUTEROL 3 ML NEB INHALATION SCH ×4 (09:33→20:09)
[2023-11-27] MEDS: BUDESONIDE 0.5 MG/2 ML NEBU INHALATION SCH ×2 (09:33→20:09)
[2023-11-27] MEDS: SOTALOL 80 MG TAB PO SCH ×2 (09:59→21:21)
[2023-11-27 10:02] LABS: BUN/Creat Ratio 21.78 Ratio (12.00-20.00); Blood Urea Nitrogen 19.6 mg/dL (9.0-27.0); Calcium 9.4 mg/dL (8.7-10.3); Carbon Dioxide 27.9 mmol/L (21.6-31.8); Chloride 100 mmol/L (96-109); Glucose 177 mg/dL (70-110); Potassium 4.7 mmol/L (3.5-5.5); Sodium 138 mmol/L (135-145)
[2023-11-27 10:09] LABS: Basophils # (A) 0.01 X 10*3/uL (0.00-0.10); Basophils % (A) 0.1 %; Eosinophils # (A) 0 X 10*3/uL (0.04-0.35); Eosinophils % (A) 0 %; HCT 35.8 % (37.2-46.3); HGB 11.4 g/dL (12.0-15.0); Lymphocytes # (A) 1.21 X 10*3/uL (0.90-5.00); Lymphocytes % (A) 11.5 %; MCH 34.2 pg (27.0-32.0); MCHC 31.8 g/dL (32.0-37.0); MCV 107.5 FL (80.0-97.0); Mean Platelet Volume 12.7 FL (9.5-12.2); Monocytes # (A) 0.66 X 10*3/uL (0.20-1.00); Monocytes % (A) 6.3 %; NRBC Per 100 WBC 0 X 10*3/uL (0.00-0.01); Neutrophils # (A) 8.59 X 10*3/uL (1.80-7.70); Neutrophils % (A) 81.2 %; Platelet Count 231 X 10*3/uL (140-440); RBC 3.33 X 10*6/uL (4.10-5.20); RDW 13.2 % (11.5-14.5); WBC 10.56 X 10*3/uL (4.50-10.00)
[2023-11-27 11:28] LABS: Glucose,Whole Blood 239 mg/dL (70-110)
--- NOTE | 2023-11-27 13:10 | P.PN ---
Subjective Progress Note Date: 11/27/23 I am seeing this patient in consultation today to 11/24/2023 on the general medical floor after she was transferred from [facility] with concerns of pneumonia. Patient is a 83-year-old white female with past medical history significant for atrial fibrillation, diabetes mellitus, neuropathy, hy perlipidemia, hypertension, hypothyroidism, among other things. Denies history of COPD or asthma. Patient does reside at [facility]. She is wheelchair- bound. Apparently, she was treated at [facility] for pneumonia about one and 1/2 weeks ago. She did not improve, and was sent to [facility]. CT of the chest at the outside facility showed low lung volumes, scattered groundglass opacities, a focal consolidation within the right middle lobe concerning for developing pneumonia or atelectasis, bibasilar atelectasis, trace pleural left effusion, and likely fluid within the right minor fissure. Patient was transferred to our facility yesterday afternoon. She is currently sitting up in bed, on 3 L per min nasal cannula, in no acute distress. She does not wear home oxygen. She does have persistent congested nonproductive cough. States that her cough was productive with yellow sputum earlier in the week. She denies any fevers, chest pains. She does become dyspneic even with talking. She has audible wheezing. Denies any nausea, vomiting, abdominal pain, diarrhea. Chest x-ray at our facility shows mild opacities in the right midlung likely representing atelectasis, however, underlying developing pneumonia could not be excluded. CBC shows a WBC count of 10.9, hemoglobin 11.9, hematocrit 36.2, platelets 233. BMP has a sodium of 135, potassium 4.7, chloride 99, serum bicarb 27, BUN 31, creatinine 1.18, glucose 245. NT proBNP at outside facility was low. And troponin was not elevated. Normal saline infusing at 100 ML's per hour. Procalcitonin level was 0.09. Negative for influenza, RSV, COVID-19. Urine Legionella antigen pending. Patient was empirically started on a combination of azithromycin and Zosyn. She is currently afebrile. Vital signs are stable. Repeat chest x-ray from today shows some atelectatic changes in the right midlung and the left lower lobe. I also had a chance to review the CAT scan of the chest that was done and [facility], and the patient has some atelectatic changes in the right midlung and some chronic atelectatic change in the left lower lobe. No evidence of any pulmonary infection or pneumonia at this point in time. The patient has a low pro-calcitonin level. Nevertheless, the patient is bronchospastic and wheezy. Denies having any previous history of smoking. She is essentially poor historian and she is a shelter resident who resides in [facility]. Due to concern for pneumonia, the patient was started on a combination of Zosyn and Zithromax. She was also started on DuoNeb nebulized treatments [id number]. Outpatient medications been resumed. The patient is also on Lasix 10 mg by mouth daily. On today's evaluation of 11/25/2023, lymphs seeing the patient for a follow-up. The patient is clinically stable. Nontender worsening in the rest or status. In fact, the patient is feeling slightly short of breath. She has a congested cough. Unable to bring up much of sputum. She is currently on broad-spectrum antibiotics and the patient is on a combination of Zosyn and vancomycin. She is also on bronchodilators and steroids and IV Solu-Medrol is being admitted at a dose of 60 mg IV push every 6 hours. CAT scan of the chest showed some atelectatic changes in lung bases bilaterally. No clear consolidation or airspace disease. She is afebrile. She has a echoes of 10 with a hemoglobin of 11.1 and a platelet count of 219. Sodium is at 136, BUN is at 22 with a creatinine of 1 and the rest of the electrolytes are within normal limits. She is unable to give a sputum sample. The patient is on 3 L of O2 nasal cannula with a pulse ox of 99%. She is hemodynamically stable. On today's evaluation of 11/26/2023, the patient is being seen for a follow-up. No new complaints. Continues to receive bronchodilators. Continues to receive steroids. Continues to be on broad-spectrum antibiotics. A swallow evaluation will be also done today to evaluate her swallow. On today's evaluation of 11/27/2023, slightly improved and less congested although the patient is having frequent episodes of cough. No aspiration on the swallow evaluation. Remains on antibiotics. Remains on steroids and bronchodilators. No new complaints otherwise for now. Oxygen requirements are unchanged and the patient remains on 3 L O2 nasal cannula the labs show a WBC count of 10.5, hemoglobin 11.4, BUN is at 19 with a creatinine 0.9 and sodium levels of 138. Objective - Vital Signs Vital signs: Vital Signs Temp 98.9 F 11/27/23 01:55 Pulse 58 L 11/27/23 09:51 Resp 17 11/27/23 08:00 BP 113/73 11/27/23 09:15 Pulse Ox 99 11/27/23 08:00 FiO2 Intake & Output 11/26/23 11/27/23 11/27/23 18:59 06:59 18:59 Output Total 3 Balance -3 Output: Stool 3 Other: # Voids 1 1 # Bowel Movements 1 1 - Exam GENERAL EXAM: Alert, 83-year-old obese white female, resting tremor, comfortable in no apparent distress. The patient remains on 3 L of oxygen nasal cannula HEAD: Normocephalic and atraumatic EYES: Normal reaction of pupils, equal size. NOSE: Clear with pink turbinates. THROAT: No erythema or exudates. NECK: No masses, no JVD. CHEST: No chest wall deformity. LUNGS: Equal air entry with expiratory wheezes and rhonchi throughout. Congested cough. No conversational dyspnea or accessory muscle use.. CVS: S1 and S2 normal with no audible murmur, irregular rhythm. No extra heart sounds ABDOMEN: No hepatosplenomegaly, active bowel sounds, no guarding or rigidity. SPINE: No scoliosis or deformity SKIN: No rashes CENTRAL NERVOUS SYSTEM: No focal deficits, tone is normal in all 4 extremities. EXTREMITIES: There is no peripheral edema, clubbing, or cyanosis. Peripheral pulses are intact. - Labs CBC & Chem 7: 11/27/23 06:53 11/27/23 06:53 Labs: Abnormal Lab Results - Last 24 Hours (Table) 11/26/23 11/26/23 11/26/23 Range/Units 11:41 16:19 19:25 WBC (4.50-10.00) X 10*3/uL RBC (4.10-5.20) X 10*6/uL Hgb (12.0-15.0) g/dL Hct (37.2-46.3) % MCV (80.0-97.0) FL MCH (27.0-32.0) pg MCHC (32.0-37.0) g/dL MPV (9.5-12.2) FL Immature Gran # (0.00-0.04) X 10*3/uL Neutrophils # (1.80-7.70) X 10*3/uL Eosinophils # (0.04-0.35) X 10*3/uL BUN/Creatinine Ratio (12.00-20.00) Ratio Glucose (70-110) mg/dL POC Glucose (mg/dL) 225 H 209 H 282 H (70-110) mg/dL 11/27/23 11/27/23 11/27/23 Range/Units 05:46 06:53 06:53 WBC 10.56 H (4.50-10.00) X 10*3/uL RBC 3.33 L (4.10-5.20) X 10*6/uL Hgb 11.4 L (12.0-15.0) g/dL Hct 35.8 L (37.2-46.3) % MCV 107.5 H (80.0-97.0) FL MCH 34.2 H (27.0-32.0) pg MCHC 31.8 L (32.0-37.0) g/dL MPV 12.7 H (9.5-12.2) FL Immature Gran # 0.09 H (0.00-0.04) X 10*3/uL Neutrophils # 8.59 H (1.80-7.70) X 10*3/uL Eosinophils # 0 L (0.04-0.35) X 10*3/uL BUN/Creatinine Ratio 21.78 H (12.00-20.00) Ratio Glucose 177 H (70-110) mg/dL POC Glucose (mg/dL) 182 H (70-110) mg/dL Microbiology - Last 24 Hours (Table) 11/25/23 17:33 Gram Stain - Preliminary Sputum Assessment and Plan Plan: Acute on chronic dyspnea with limited atelectatic changes in the right midlung and the left lower lobe without evidence of any consolidation with air space disease. Suspect also changes of atelectatic rather than infectious in nature. The vital screening came back negative and the patient has a nonelevated pro- calcitonin level. The antibiotic coverage at this point is empiric and the patient was covered with a combination of Zithromax and Zosyn. Nevertheless, the patient has a congested cough with active bronchospasm or wheezing. Rule out underlying tracheobronchitis in addition to a component of tracheal bronchomalacia. Clinically slightly improved compared to yesterday Acute hypoxemic respiratory failure, currently on 3 L of action by nasal cannula Diabetes mellitus type 2, complicated with diabetic neuropathy Hyperlipidemia Hypertension History of paroxysmal atrial fibrillation Hypothyroidism Resting tremor Morbid obesity, with a BMI of 40.2 kg/m Plan: Completed swallow evaluation and the patient did not have any significant aspiration. There was some limited penetration. Continue same treatment The patient may have some tracheal bronchomalacia was mucus retention. She has atelectatic change in the lung bases. She reports some modest improvement. Clinically, she is stable and she is more coherent compared to yesterday. Continue bronchodilators Put the patient on 60 mg mg of IV Solu-Medrol every 6 hours and monitor the blood sugars Provide the patient senna spirometer Robitussin for cough and congestion CAT scan of the chest was reviewed. Chest x-ray was reviewed. We'll continue to follow. Resume all medications from home May consider bronchoscopy at the later stage if no improvement in her cough and chest congestion.
[2023-11-27 16:36] LABS: Glucose,Whole Blood 224 mg/dL (70-110)
[2023-11-27] MEDS: SODIUM CHLORIDE 0.9% 1,000 ML IV SCH (18:28)
[2023-11-27 19:46] LABS: Glucose,Whole Blood 272 mg/dL (70-110)
[2023-11-27] MEDS: LORazepam 0.5 MG TAB PO SCH (21:17)
[2023-11-27] MEDS: ATORVASTATIN 40 MG TAB PO SCH (21:17)
[2023-11-27] MEDS: AMITRIPTYLINE HCL 25 MG TAB PO SCH (21:21)
--- NOTE | 2023-11-28 00:56 | P.PN ---
Subjective Progress Note Date: 11/27/23 Patient is an 83 year old female admitted for pneumonia sent from [place]. Patient was treated outpatient and had minimal improvement. Chest xray reveals a right mild lung infiltrate with atelectasis at the left lung base. Patient has poor inspiratory effort and weak cough unable to clear the secretions. She remains on zosyn and pulmonary following. Patient will be considered for bronchoscopy. Viral testing negative for rsv, influenza or covid, legionella is negative and mycoplasma currently pending. Remains on room air. 11/26/2023 Patient is evaluated today sitting up in bed. Has increased congestion since yesterday. Remains on IV zosyn and IV solumedrol. Patient was evaluated by speech therapy diet down graded to dysphagia level 3 chopped and unable to rule out silent aspiration. For this reason patient going for MBS today. 11/27/2023 Patient is lying in the bed. Awake alert and oriented. Denies any complaints of worsening shortness of breath. Breathing status is improving slowly. Able to tolerate oral diet without aspiration. Patient has been afebrile. Requiring 3 L oxygen via nasal cannula. No nausea vomiting abdominal pain or diarrhea. Laboratory data showed WBC 10.5 hemoglobin 11.4 and platelets 231 Sodium 138 potassium 4.7 chloride 100 bicarb is 27.9 BUN 19.6 and creatinine 0.9 and blood sugar is 177 and A1c level is 7.5. Patient is being continued on IV Solu-Medrol 60 mg every 6 hourly Patient completed antibiotic course with Zosyn 5 days and azithromycin for 3 days. Pulmonary is on board. Patient underwent MBS on 1229 which showed intermittent penetration with thin liquids. Premature spillage of thin liquids via straw. No aspiration seen. Patient is currently on dysphagia level 2 diet. Review of Systems Constitutional: Denied any fatigue denied any fever. Cardio vascular: denied any chest pain, palpitations Gastrointestinal: denied any nausea, vomiting, diarrhea Pulmonary: Denies shortness of breath, reports cough Neurologic denied any new focal deficits All inpatient medications were reviewed and appropriate changes in these medications as dictated in the interval history and assessment and plan. PHYSICAL EXAMINATION: GENERAL: The patient is alert and oriented x3, not in any acute distress. Well developed, well nourished. HEENT: Pupils are round and equally reacting to light. EOMI. No scleral icterus. No conjunctival pallor. Normocephalic, atraumatic. No pharyngeal erythema. No thyromegaly. CARDIOVASCULAR: S1 and S2 present. No murmurs, rubs, or gallops. PULMONARY: Bibasilar crackles and scattered wheezing. Congested cough. ABDOMEN: Soft, nontender, nondistended, normoactive bowel sounds. No palpable organomegaly. MUSCULOSKELETAL: No joint swelling or deformity. EXTREMITIES: No cyanosis, clubbing, or pedal edema. NEUROLOGICAL: Gross neurological examination did not reveal any focal deficits. Diffuse weakness. SKIN: No rashes. Assessment and Plan -Bilateral atelectasis in the right mid lung and left lower lobe, patient was continued on empiric antibiotic coverage x 5 days although procalcitonin level is normal. - Acute tracheobronchitis being treated with systemic steroids and patient is encouraged to use incentive spirometer 10 x an hour while awake. Patient is reaching 500. -Acute hypoxemic respiratory failure secondary to above wean oxygen as tolerated patient with oxygen saturations of 98% on 3L of oxygen. -Dysphagia. Status post [facility] which showed intermittent penetration with thin liquids. No aspiration seen. Patient is on dysphagia level 2 diet currently. -History of atrial fibrillation, paroxysmal not anticoagulated -Diabetes Mellitus type 2 continues on sliding scale insulin and levemir for the steroid induced hyperglycemia -Hyperlipidemia continues on lipitor -Hypertension continues on antihypertensives -Sleep apnea -Hypothyroidism -Obesity -History of coronary artery disease and prior cardiac stenting GI prophylaxis DVT prophylaxis: Subcu heparin PT/OT consultation in place. Pulmonary services following. Patient is status post [facility] on 11/26/2023. Started on dysphagia level 2 diet with one-to-one supervision. Continue with IV Solu-Medrol and breathing treatments. Oxygen supplementation as needed and titrate down to room air. Completed antibiotic course. Discharge back to [facility] when stable. Objective - Vital Signs Vital signs: Vital Signs Temp 97.6 F 11/27/23 20:00 Pulse 58 L 11/27/23 20:25 Resp 16 11/27/23 20:11 BP 128/70 11/27/23 20:00 Pulse Ox 98 11/27/23 20:00 FiO2 Intake & Output 11/27/23 11/27/23 11/28/23 06:59 18:59 06:59 Output Total 3 1200 Balance -3 -1200 Output: Urine 1200 Stool 3 Other: Voiding Method External Catheter # Voids 1 # Bowel Movements 1 - Labs CBC & Chem 7: 11/27/23 06:53 11/27/23 06:53 Labs: Abnormal Lab Results - Last 24 Hours (Table) 11/27/23 11/27/23 11/27/23 Range/Units 05:46 06:53 06:53 WBC 10.56 H (4.50-10.00) X 10*3/uL RBC 3.33 L (4.10-5.20) X 10*6/uL Hgb 11.4 L (12.0-15.0) g/dL Hct 35.8 L (37.2-46.3) % MCV 107.5 H (80.0-97.0) FL MCH 34.2 H (27.0-32.0) pg MCHC 31.8 L (32.0-37.0) g/dL MPV 12.7 H (9.5-12.2) FL Immature Gran # 0.09 H (0.00-0.04) X 10*3/uL Neutrophils # 8.59 H (1.80-7.70) X 10*3/uL Eosinophils # 0 L (0.04-0.35) X 10*3/uL BUN/Creatinine Ratio (12.00-20.00) Ratio Glucose (70-110) mg/dL POC Glucose (mg/dL) 182 H (70-110) mg/dL Hemoglobin A1c 7.5 H (<=6.0) % 11/27/23 11/27/23 11/27/23 Range/Units 06:53 11:27 16:34 WBC (4.50-10.00) X 10*3/uL RBC (4.10-5.20) X 10*6/uL Hgb (12.0-15.0) g/dL Hct (37.2-46.3) % MCV (80.0-97.0) FL MCH (27.0-32.0) pg MCHC (32.0-37.0) g/dL MPV (9.5-12.2) FL Immature Gran # (0.00-0.04) X 10*3/uL Neutrophils # (1.80-7.70) X 10*3/uL Eosinophils # (0.04-0.35) X 10*3/uL BUN/Creatinine Ratio 21.78 H (12.00-20.00) Ratio Glucose 177 H (70-110) mg/dL POC Glucose (mg/dL) 239 H 224 H (70-110) mg/dL Hemoglobin A1c (<=6.0) % 11/27/23 Range/Units 19:41 WBC (4.50-10.00) X 10*3/uL RBC (4.10-5.20) X 10*6/uL Hgb (12.0-15.0) g/dL Hct (37.2-46.3) % MCV (80.0-97.0) FL MCH (27.0-32.0) pg MCHC (32.0-37.0) g/dL MPV (9.5-12.2) FL Immature Gran # (0.00-0.04) X 10*3/uL Neutrophils # (1.80-7.70) X 10*3/uL Eosinophils # (0.04-0.35) X 10*3/uL BUN/Creatinine Ratio (12.00-20.00) Ratio Glucose (70-110) mg/dL POC Glucose (mg/dL) 272 H (70-110) mg/dL Hemoglobin A1c (<=6.0) % Microbiology - Last 24 Hours (Table) 11/25/23 17:33 Gram Stain - Preliminary Sputum Sputum Culture - Preliminary
[2023-11-28 06:12] LABS: Glucose,Whole Blood 168 mg/dL (70-110)
[2023-11-28] MEDS: INSULIN ASPART (NovoLOG) 100 UNIT/ML VIAL SQ SCH ×7 (06:51→21:25)
[2023-11-28] MEDS: INSULIN DETEMIR (LEVEMIR) 100 UNIT/ML SYR SQ SCH ×2 (06:51→21:24)
[2023-11-28] MEDS: methylPREDNISolone SOD SUCCI 125 MG/2 ML VIAL IV SCH ×4 (06:52→23:57)
[2023-11-28] MEDS: LEVOTHYROXINE 50 MCG TAB PO SCH (06:52)
[2023-11-28] MEDS: glipiZIDE 5 MG TAB PO SCH ×2 (06:52→16:36)
[2023-11-28] MEDS: ACARBOSE 25 MG TAB PO SCH ×3 (06:52→16:36)
[2023-11-28] MEDS: HEPARIN SODIUM,PORCINE 5,000 UNIT/ML 1 ML VIAL SQ SCH ×2 (07:36→21:24)
[2023-11-28] MEDS: traMADol 50 MG TAB PO SCH ×2 (07:36→21:25)
[2023-11-28] MEDS: CLOPIDOGREL 75 MG TAB PO SCH (07:36)
[2023-11-28] MEDS: CYANOCOBALAMIN 500 MCG TAB PO SCH (07:37)
[2023-11-28] MEDS: CARBIDOPA-LEVODOPA 25-100 MG 1 EACH TAB PO SCH ×3 (07:37→21:25)
[2023-11-28] MEDS: LOSARTAN 50 MG TAB PO SCH (07:37)
[2023-11-28] MEDS: MAGNESIUM OXIDE 400 MG TAB PO SCH (07:37)
[2023-11-28] MEDS: GABAPENTIN 300 MG CAP PO SCH ×2 (07:37→21:25)
[2023-11-28] MEDS: THIAMINE 100 MG TAB PO SCH (07:38)
[2023-11-28] MEDS: LACTOBACILLUS ACIDOPHILUS/PECT 1 EACH CAPSULE PO SCH (07:38)
[2023-11-28] MEDS: ASPIRIN 81 MG PO SCH (07:38)
[2023-11-28] MEDS: SOTALOL 80 MG TAB PO SCH ×2 (07:39→21:25)
[2023-11-28] MEDS: CHOLECALCIFEROL 125 MCG (5000 IU) TABLET PO SCH (07:39)
[2023-11-28] MEDS: SODIUM CHLORIDE 0.9% 1,000 ML IV SCH (07:40)
[2023-11-28] MEDS: IPRATROPIUM-ALBUTEROL 3 ML NEB INHALATION SCH ×4 (07:40→21:04)
[2023-11-28] MEDS: BUDESONIDE 0.5 MG/2 ML NEBU INHALATION SCH ×2 (07:40→21:04)
[2023-11-28] MEDS: ARTIFICIAL TEARS-HYPROMELLOSE DROPS 15 ML BTL BOTH EYES SCH ×2 (07:41→21:35)
[2023-11-28] MEDS: FUROSEMIDE 10 MG TAB PO SCH (07:42)
[2023-11-28] MEDS: ISOSORBIDE MONONITRATE ER 60 MG TAB.ER.24H PO SCH (07:45)
[2023-11-28 09:08] LABS: BUN/Creat Ratio 23.44 Ratio (12.00-20.00); Blood Urea Nitrogen 21.1 mg/dL (9.0-27.0); Calcium 9.6 mg/dL (8.7-10.3); Carbon Dioxide 30.5 mmol/L (21.6-31.8); Chloride 99 mmol/L (96-109); Glucose 189 mg/dL (70-110); Potassium 4.5 mmol/L (3.5-5.5); Sodium 138 mmol/L (135-145)
[2023-11-28 09:14] LABS: Basophils # (A) 0.01 X 10*3/uL (0.00-0.10); Basophils % (A) 0.1 %; Eosinophils # (A) 0.01 X 10*3/uL (0.04-0.35); Eosinophils % (A) 0.1 %; HCT 34.6 % (37.2-46.3); HGB 11.3 g/dL (12.0-15.0); Lymphocytes # (A) 1.15 X 10*3/uL (0.90-5.00); Lymphocytes % (A) 10.4 %; MCH 33.8 pg (27.0-32.0); MCHC 32.7 g/dL (32.0-37.0); MCV 103.6 FL (80.0-97.0); Mean Platelet Volume 12.7 FL (9.5-12.2); Monocytes # (A) 0.88 X 10*3/uL (0.20-1.00); Monocytes % (A) 7.9 %; NRBC Per 100 WBC 0 X 10*3/uL (0.00-0.01); Neutrophils # (A) 8.97 X 10*3/uL (1.80-7.70); Platelet Count 240 X 10*3/uL (140-440); RBC 3.34 X 10*6/uL (4.10-5.20); RDW 13.2 % (11.5-14.5); WBC 11.08 X 10*3/uL (4.50-10.00)
[2023-11-28 11:08] LABS: Glucose,Whole Blood 332 mg/dL (70-110)
--- NOTE | 2023-11-28 13:33 | P.PN ---
Subjective Progress Note Date: 11/28/23 I am seeing this patient in consultation today to 11/24/2023 on the general medical floor after she was transferred from [facility] with concerns of pneumonia. Patient is a 83-year-old white female with past medical history significant for atrial fibrillation, diabetes mellitus, neuropathy, hy perlipidemia, hypertension, hypothyroidism, among other things. Denies history of COPD or asthma. Patient does reside at [facility]. She is wheelchair- bound. Apparently, she was treated at [facility] for pneumonia about one and 1/2 weeks ago. She did not improve, and was sent to [facility]. CT of the chest at the outside facility showed low lung volumes, scattered groundglass opacities, a focal consolidation within the right middle lobe concerning for developing pneumonia or atelectasis, bibasilar atelectasis, trace pleural left effusion, and likely fluid within the right minor fissure. Patient was transferred to our facility yesterday afternoon. She is currently sitting up in bed, on 3 L per min nasal cannula, in no acute distress. She does not wear home oxygen. She does have persistent congested nonproductive cough. States that her cough was productive with yellow sputum earlier in the week. She denies any fevers, chest pains. She does become dyspneic even with talking. She has audible wheezing. Denies any nausea, vomiting, abdominal pain, diarrhea. Chest x-ray at our facility shows mild opacities in the right midlung likely representing atelectasis, however, underlying developing pneumonia could not be excluded. CBC shows a WBC count of 10.9, hemoglobin 11.9, hematocrit 36.2, platelets 233. BMP has a sodium of 135, potassium 4.7, chloride 99, serum bicarb 27, BUN 31, creatinine 1.18, glucose 245. NT proBNP at outside facility was low. And troponin was not elevated. Normal saline infusing at 100 ML's per hour. Procalcitonin level was 0.09. Negative for influenza, RSV, COVID-19. Urine Legionella antigen pending. Patient was empirically started on a combination of azithromycin and Zosyn. She is currently afebrile. Vital signs are stable. Repeat chest x-ray from today shows some atelectatic changes in the right midlung and the left lower lobe. I also had a chance to review the CAT scan of the chest that was done and [facility], and the patient has some atelectatic changes in the right midlung and some chronic atelectatic change in the left lower lobe. No evidence of any pulmonary infection or pneumonia at this point in time. The patient has a low pro-calcitonin level. Nevertheless, the patient is bronchospastic and wheezy. Denies having any previous history of smoking. She is essentially poor historian and she is a [facility] resident who resides in [facility]. Due to concern for pneumonia, the patient was started on a combination of Zosyn and Zithromax. She was also started on DuoNeb nebulized treatments [id number]. Outpatient medications been resumed. The patient is also on Lasix 10 mg by mouth daily. On today's evaluation of 11/25/2023, lymphs seeing the patient for a follow-up. The patient is clinically stable. Nontender worsening in the rest or status. In fact, the patient is feeling slightly short of breath. She has a congested cough. Unable to bring up much of sputum. She is currently on broad-spectrum antibiotics and the patient is on a combination of Zosyn and vancomycin. She is also on bronchodilators and steroids and IV Solu-Medrol is being admitted at a dose of 60 mg IV push every 6 hours. CAT scan of the chest showed some atelectatic changes in lung bases bilaterally. No clear consolidation or airspace disease. She is afebrile. She has a echoes of 10 with a hemoglobin of 11.1 and a platelet count of 219. Sodium is at 136, BUN is at 22 with a creatinine of 1 and the rest of the electrolytes are within normal limits. She is unable to give a sputum sample. The patient is on 3 L of O2 nasal cannula with a pulse ox of 99%. She is hemodynamically stable. On today's evaluation of 11/26/2023, the patient is being seen for a follow-up. No new complaints. Continues to receive bronchodilators. Continues to receive steroids. Continues to be on broad-spectrum antibiotics. A swallow evaluation will be also done today to evaluate her swallow. On today's evaluation of 11/27/2023, slightly improved and less congested although the patient is having frequent episodes of cough. No aspiration on the swallow evaluation. Remains on antibiotics. Remains on steroids and bronchodilators. No new complaints otherwise for now. Oxygen requirements are unchanged and the patient remains on 3 L O2 nasal cannula the labs show a WBC count of 10.5, hemoglobin 11.4, BUN is at 19 with a creatinine 0.9 and sodium levels of 138. On 11/28/2023, condition is essentially unchanged since yesterday and the patient continues to have congestion and bronchospasm wheezing. I suspect an underlying tracheal bronchomalacia in addition to her COPD. This likely the patient may benefit from a diagnostic and therapeutic bronchoscopy. I'm tentatively try to schedule this procedure for tomorrow. Continue DuoNeb updrafts. Continue IV Solu-Medrol. Continue diuretics and the patient is on Lasix 10 mg by mouth daily. No other significant events otherwise for now. Labs were checked and the patient has a white cell count of 11, hemoglobin of 11 and a platelet count of 240. the electrolytes are all stable. Objective - Vital Signs Vital signs: Vital Signs Temp 97.5 F L 11/28/23 07:37 Pulse 60 11/28/23 10:43 Resp 20 11/28/23 07:37 BP 176/92 11/28/23 07:37 Pulse Ox 98 11/28/23 07:37 FiO2 Intake & Output 11/27/23 11/28/23 11/28/23 18:59 06:59 18:59 Output Total 1200 200 Balance -1200 -200 Output: Urine 1200 200 Other: Voiding Method External Catheter External Catheter # Voids 1 # Bowel Movements 1 - Exam GENERAL EXAM: Alert, 83-year-old obese white female, resting tremor, comfortable in no apparent distress. The patient remains on 3 L of oxygen nasal cannula HEAD: Normocephalic and atraumatic EYES: Normal reaction of pupils, equal size. NOSE: Clear with pink turbinates. THROAT: No erythema or exudates. NECK: No masses, no JVD. CHEST: No chest wall deformity. LUNGS: Equal air entry with expiratory wheezes and rhonchi throughout. Congested cough. No conversational dyspnea or accessory muscle use.. CVS: S1 and S2 normal with no audible murmur, irregular rhythm. No extra heart sounds ABDOMEN: No hepatosplenomegaly, active bowel sounds, no guarding or rigidity. SPINE: No scoliosis or deformity SKIN: No rashes CENTRAL NERVOUS SYSTEM: No focal deficits, tone is normal in all 4 extremities. EXTREMITIES: There is no peripheral edema, clubbing, or cyanosis. Peripheral pulses are intact. - Labs CBC & Chem 7: 11/28/23 04:16 11/28/23 04:16 Labs: Abnormal Lab Results - Last 24 Hours (Table) 11/27/23 11/27/23 11/27/23 Range/Units 06:53 11:27 16:34 WBC (4.50-10.00) X 10*3/uL RBC (4.10-5.20) X 10*6/uL Hgb (12.0-15.0) g/dL Hct (37.2-46.3) % MCV (80.0-97.0) FL MCH (27.0-32.0) pg MPV (9.5-12.2) FL Immature Gran # (0.00-0.04) X 10*3/uL Neutrophils # (1.80-7.70) X 10*3/uL Eosinophils # (0.04-0.35) X 10*3/uL BUN/Creatinine Ratio (12.00-20.00) Ratio Glucose (70-110) mg/dL POC Glucose (mg/dL) 239 H 224 H (70-110) mg/dL Hemoglobin A1c 7.5 H (<=6.0) % 11/27/23 11/28/23 11/28/23 Range/Units 19:41 04:16 04:16 WBC 11.08 H (4.50-10.00) X 10*3/uL RBC 3.34 L (4.10-5.20) X 10*6/uL Hgb 11.3 L (12.0-15.0) g/dL Hct 34.6 L (37.2-46.3) % MCV 103.6 H (80.0-97.0) FL MCH 33.8 H (27.0-32.0) pg MPV 12.7 H (9.5-12.2) FL Immature Gran # 0.06 H (0.00-0.04) X 10*3/uL Neutrophils # 8.97 H (1.80-7.70) X 10*3/uL Eosinophils # 0.01 L (0.04-0.35) X 10*3/uL BUN/Creatinine Ratio 23.44 H (12.00-20.00) Ratio Glucose 189 H (70-110) mg/dL POC Glucose (mg/dL) 272 H (70-110) mg/dL Hemoglobin A1c (<=6.0) % 11/28/23 Range/Units 06:12 WBC (4.50-10.00) X 10*3/uL RBC (4.10-5.20) X 10*6/uL Hgb (12.0-15.0) g/dL Hct (37.2-46.3) % MCV (80.0-97.0) FL MCH (27.0-32.0) pg MPV (9.5-12.2) FL Immature Gran # (0.00-0.04) X 10*3/uL Neutrophils # (1.80-7.70) X 10*3/uL Eosinophils # (0.04-0.35) X 10*3/uL BUN/Creatinine Ratio (12.00-20.00) Ratio Glucose (70-110) mg/dL POC Glucose (mg/dL) 168 H (70-110) mg/dL Hemoglobin A1c (<=6.0) % Microbiology - Last 24 Hours (Table) 11/25/23 17:33 Gram Stain - Final Sputum Sputum Culture - Final Assessment and Plan Plan: Acute on chronic dyspnea with limited atelectatic changes in the right midlung and the left lower lobe without evidence of any consolidation with air space disease. Suspect also changes of atelectatic rather than infectious in nature. The vital screening came back negative and the patient has a nonelevated pro- calcitonin level. The antibiotic coverage at this point is empiric and the patient was covered with a combination of Zithromax and Zosyn. Nevertheless, the patient has a congested cough with active bronchospasm or wheezing. Rule out underlying tracheobronchitis in addition to a component of tracheal bronchomalacia. Clinically slightly improved compared to yesterday, he is overall condition remains on still suboptimal and the patient continues to have respiratory insufficiency related to the above. Acute hypoxemic respiratory failure, currently on 3 L of action by nasal cannula Diabetes mellitus type 2, complicated with diabetic neuropathy Hyperlipidemia Hypertension History of paroxysmal atrial fibrillation Hypothyroidism Resting tremor Morbid obesity, with a BMI of 40.2 kg/m Plan: Completed swallow evaluation and the patient did not have any significant aspiration. There was some limited penetration. Continue same treatment Clinically unchanged The patient may have some tracheal bronchomalacia was mucus retention. She has atelectatic change in the lung bases. She reports some modest improvement. Clinically, she is stable and she is more coherent compared to yesterday. Continue bronchodilators Put the patient on 60 mg mg of IV Solu-Medrol every 6 hours and monitor the blood sugars Provide the patient senna spirometer Robitussin for cough and congestion CAT scan of the chest was reviewed. Chest x-ray was reviewed. We'll keep her nothing by mouth after midnight and will plan for a bronchoscopy in a.m.
[2023-11-28 16:13] LABS: Glucose,Whole Blood 327 mg/dL (70-110)
[2023-11-28 20:46] LABS: Glucose,Whole Blood 302 mg/dL (70-110)
[2023-11-28] MEDS: LORazepam 0.5 MG TAB PO SCH (21:25)
[2023-11-28] MEDS: ATORVASTATIN 40 MG TAB PO SCH (21:25)
[2023-11-28] MEDS: AMITRIPTYLINE HCL 25 MG TAB PO SCH (21:25)
[2023-11-28] MEDS ORDERED: INSULIN DETEMIR (LEVEMIR) 100 UNIT/ML SYR SQ ONE (21:53)
[2023-11-28] MEDS: guaiFENesin SYRUP 100MG/5ML 200 MG/10 ML CUP PO PRN (23:57)
[2023-11-29 05:54] LABS: Glucose,Whole Blood 184 mg/dL (70-110)
[2023-11-29] MEDS: glipiZIDE 5 MG TAB PO SCH ×2 (06:23→16:50)
[2023-11-29] MEDS: ACARBOSE 25 MG TAB PO SCH ×3 (06:23→16:50)
[2023-11-29] MEDS: LEVOTHYROXINE 50 MCG TAB PO SCH (06:23)
[2023-11-29] MEDS: INSULIN DETEMIR (LEVEMIR) 100 UNIT/ML SYR SQ SCH (06:43)
[2023-11-29] MEDS: methylPREDNISolone SOD SUCCI 125 MG/2 ML VIAL IV SCH ×4 (06:44→23:04)
[2023-11-29] MEDS: INSULIN ASPART (NovoLOG) 100 UNIT/ML VIAL SQ SCH ×7 (06:44→21:49)
[2023-11-29] MEDS: BUDESONIDE 0.5 MG/2 ML NEBU INHALATION SCH ×2 (08:10→21:12)
[2023-11-29] MEDS: IPRATROPIUM-ALBUTEROL 3 ML NEB INHALATION SCH ×4 (08:11→21:12)
[2023-11-29 10:32] LABS: Basophils # (A) 0.02 X 10*3/uL (0.00-0.10); Basophils % (A) 0.2 %; Eosinophils # (A) 0 X 10*3/uL (0.04-0.35); Eosinophils % (A) 0 %; HCT 37.7 % (37.2-46.3); HGB 12.2 g/dL (12.0-15.0); Lymphocytes # (A) 1.02 X 10*3/uL (0.90-5.00); Lymphocytes % (A) 8.1 %; MCH 34.3 pg (27.0-32.0); MCHC 32.4 g/dL (32.0-37.0); MCV 105.9 FL (80.0-97.0); Mean Platelet Volume 12.9 FL (9.5-12.2); Monocytes # (A) 0.84 X 10*3/uL (0.20-1.00); Monocytes % (A) 6.7 %; NRBC Per 100 WBC 0 X 10*3/uL (0.00-0.01); Neutrophils # (A) 10.62 X 10*3/uL (1.80-7.70); Neutrophils % (A) 84.3 %; Platelet Count 256 X 10*3/uL (140-440); RBC 3.56 X 10*6/uL (4.10-5.20); RDW 13.2 % (11.5-14.5); WBC 12.59 X 10*3/uL (4.50-10.00)
[2023-11-29 10:50] LABS: BUN/Creat Ratio 24.11 Ratio (12.00-20.00); Blood Urea Nitrogen 21.7 mg/dL (9.0-27.0); Glucose 183 mg/dL (70-110)
[2023-11-29 10:51] LABS: Calcium 9.9 mg/dL (8.7-10.3); Carbon Dioxide 29.2 mmol/L (21.6-31.8); Chloride 101 mmol/L (96-109); Potassium 4.7 mmol/L (3.5-5.5); Sodium 140 mmol/L (135-145)
[2023-11-29] MEDS ORDERED: PROPOFOL 10 MG/ML 20 ML VIAL IV ONE (11:31)
[2023-11-29] MEDS ORDERED: IV FLUID CONTINUATION 1,000 ML IV ONE (11:53)
[2023-11-29] MEDS: traMADol 50 MG TAB PO SCH ×2 (13:24→21:50)
[2023-11-29] MEDS: MAGNESIUM OXIDE 400 MG TAB PO SCH (13:25)
[2023-11-29] MEDS: THIAMINE 100 MG TAB PO SCH (13:25)
[2023-11-29 13:26] LABS: Glucose,Whole Blood 185 mg/dL (70-110)
[2023-11-29] MEDS: CARBIDOPA-LEVODOPA 25-100 MG 1 EACH TAB PO SCH ×3 (13:26→21:49)
[2023-11-29] MEDS: LACTOBACILLUS ACIDOPHILUS/PECT 1 EACH CAPSULE PO SCH (13:26)
[2023-11-29] MEDS: CYANOCOBALAMIN 500 MCG TAB PO SCH (13:26)
[2023-11-29] MEDS: CHOLECALCIFEROL 125 MCG (5000 IU) TABLET PO SCH (13:26)
[2023-11-29] MEDS: LOSARTAN 50 MG TAB PO SCH (13:26)
[2023-11-29] MEDS: FUROSEMIDE 10 MG TAB PO SCH (13:26)
[2023-11-29] MEDS: CLOPIDOGREL 75 MG TAB PO SCH (13:26)
[2023-11-29] MEDS: SOTALOL 80 MG TAB PO SCH ×2 (13:27→22:30)
[2023-11-29] MEDS: GABAPENTIN 300 MG CAP PO SCH ×2 (13:27→21:49)
[2023-11-29] MEDS: ISOSORBIDE MONONITRATE ER 60 MG TAB.ER.24H PO SCH (13:27)
[2023-11-29] MEDS: SODIUM CHLORIDE 0.9% 1,000 ML IV SCH (13:29)
[2023-11-29] MEDS: HEPARIN SODIUM,PORCINE 5,000 UNIT/ML 1 ML VIAL SQ SCH ×2 (13:29→21:49)
[2023-11-29] MEDS: ASPIRIN 81 MG PO SCH (13:29)
[2023-11-29] MEDS: ARTIFICIAL TEARS-HYPROMELLOSE DROPS 15 ML BTL BOTH EYES SCH ×2 (13:29→21:50)
--- NOTE | 2023-11-29 14:22 | P.PN ---
Subjective Progress Note Date: 11/29/23 I am seeing this patient in consultation today to 11/24/2023 on the general medical floor after she was transferred from [facility] with concerns of pneumonia. Patient is a 83-year-old white female with past medical history significant for atrial fibrillation, diabetes mellitus, neuropathy, hy perlipidemia, hypertension, hypothyroidism, among other things. Denies history of COPD or asthma. Patient does reside at [facility]. She is wheelchair- bound. Apparently, she was treated at [facility] for pneumonia about one and 1/2 weeks ago. She did not improve, and was sent to [facility]. CT of the chest at the outside facility showed low lung volumes, scattered groundglass opacities, a focal consolidation within the right middle lobe concerning for developing pneumonia or atelectasis, bibasilar atelectasis, trace pleural left effusion, and likely fluid within the right minor fissure. Patient was transferred to our facility yesterday afternoon. She is currently sitting up in bed, on 3 L per min nasal cannula, in no acute distress. She does not wear home oxygen. She does have persistent congested nonproductive cough. States that her cough was productive with yellow sputum earlier in the week. She denies any fevers, chest pains. She does become dyspneic even with talking. She has audible wheezing. Denies any nausea, vomiting, abdominal pain, diarrhea. Chest x-ray at our facility shows mild opacities in the right midlung likely representing atelectasis, however, underlying developing pneumonia could not be excluded. CBC shows a WBC count of 10.9, hemoglobin 11.9, hematocrit 36.2, platelets 233. BMP has a sodium of 135, potassium 4.7, chloride 99, serum bicarb 27, BUN 31, creatinine 1.18, glucose 245. NT proBNP at outside facility was low. And troponin was not elevated. Normal saline infusing at 100 ML's per hour. Procalcitonin level was 0.09. Negative for influenza, RSV, COVID-19. Urine Legionella antigen pending. Patient was empirically started on a combination of azithromycin and Zosyn. She is currently afebrile. Vital signs are stable. Repeat chest x-ray from today shows some atelectatic changes in the right midlung and the left lower lobe. I also had a chance to review the CAT scan of the chest that was done and [facility], and the patient has some atelectatic changes in the right midlung and some chronic atelectatic change in the left lower lobe. No evidence of any pulmonary infection or pneumonia at this point in time. The patient has a low pro-calcitonin level. Nevertheless, the patient is bronchospastic and wheezy. Denies having any previous history of smoking. She is essentially poor historian and she is a assisted resident who resides in [facility]. Due to concern for pneumonia, the patient was started on a combination of Zosyn and Zithromax. She was also started on DuoNeb nebulized treatments [id number]. Outpatient medications been resumed. The patient is also on Lasix 10 mg by mouth daily. On today's evaluation of 11/25/2023, lymphs seeing the patient for a follow-up. The patient is clinically stable. Nontender worsening in the rest or status. In fact, the patient is feeling slightly short of breath. She has a congested cough. Unable to bring up much of sputum. She is currently on broad-spectrum antibiotics and the patient is on a combination of Zosyn and vancomycin. She is also on bronchodilators and steroids and IV Solu-Medrol is being admitted at a dose of 60 mg IV push every 6 hours. CAT scan of the chest showed some atelectatic changes in lung bases bilaterally. No clear consolidation or airspace disease. She is afebrile. She has a echoes of 10 with a hemoglobin of 11.1 and a platelet count of 219. Sodium is at 136, BUN is at 22 with a creatinine of 1 and the rest of the electrolytes are within normal limits. She is unable to give a sputum sample. The patient is on 3 L of O2 nasal cannula with a pulse ox of 99%. She is hemodynamically stable. On today's evaluation of 11/26/2023, the patient is being seen for a follow-up. No new complaints. Continues to receive bronchodilators. Continues to receive steroids. Continues to be on broad-spectrum antibiotics. A swallow evaluation will be also done today to evaluate her swallow. On today's evaluation of 11/27/2023, slightly improved and less congested although the patient is having frequent episodes of cough. No aspiration on the swallow evaluation. Remains on antibiotics. Remains on steroids and bronchodilators. No new complaints otherwise for now. Oxygen requirements are unchanged and the patient remains on 3 L O2 nasal cannula the labs show a WBC count of 10.5, hemoglobin 11.4, BUN is at 19 with a creatinine 0.9 and sodium levels of 138. On 11/28/2023, condition is essentially unchanged since yesterday and the patient continues to have congestion and bronchospasm wheezing. I suspect an underlying tracheal bronchomalacia in addition to her COPD. This likely the patient may benefit from a diagnostic and therapeutic bronchoscopy. I'm tentatively try to schedule this procedure for tomorrow. Continue DuoNeb updrafts. Continue IV Solu-Medrol. Continue diuretics and the patient is on Lasix 10 mg by mouth daily. No other significant events otherwise for now. Labs were checked and the patient has a white cell count of 11, hemoglobin of 11 and a platelet count of 240. the electrolytes are all stable. On 11/29/2023, the patient is essentially the same condition. Due to lack of improvement, and due to a congested cough with wheeze, I decided to proceed with a bronchoscopy today. Bronchoscopy was done and the patient was found to have severe tracheal bronchomalacia and some mild mucosal inflammatory changes and there was copious amounts of creamy white rest or secretions within the patient's airways. Therapeutic airway suctioning was done. The bronchial lavage of the right lower lobe was done. The patient was kept on br onchodilators and steroids. The patient's has no other new complaints otherwise for now. Chest x-ray showed atelectatic changes in lung bases bilaterally. The pro-calcitonin level is nonelevated. The white cycles of 12.5, hemoglobin is 12 and a platelet count is at 256. Sodium is at 140, potassium is 4.7, BUN is at 21 with a creatinine of 0.9. Calcium levels at 9.9. The collected bronchial lavage was sent for microbial analysis. Sputum sample was also negative for any microbial growth that was collected on 11/17/2023. Antibiotics and currently on hold. Pro-calcitonin level is nonelevated. Objective - Vital Signs Vital signs: Vital Signs Temp 97.6 F 11/29/23 06:54 Pulse 62 11/29/23 08:25 Resp 19 11/29/23 06:54 BP 176/83 11/29/23 06:54 Pulse Ox 100 11/29/23 06:54 FiO2 Intake & Output 11/28/23 11/29/23 11/29/23 18:59 06:59 18:59 Output Total 800 1150 Balance -800 -1150 Output: Urine 800 1150 Other: Voiding Method External Catheter External Catheter External Catheter # Bowel Movements 2 - Exam GENERAL EXAM: Alert, 83-year-old obese white female, resting tremor, comfortable in no apparent distress. The patient remains on 3 L of oxygen nasal cannula HEAD: Normocephalic and atraumatic EYES: Normal reaction of pupils, equal size. NOSE: Clear with pink turbinates. THROAT: No erythema or exudates. NECK: No masses, no JVD. CHEST: No chest wall deformity. LUNGS: Equal air entry with expiratory wheezes and rhonchi throughout. Congested cough. No conversational dyspnea or accessory muscle use.. CVS: S1 and S2 normal with no audible murmur, irregular rhythm. No extra heart sounds ABDOMEN: No hepatosplenomegaly, active bowel sounds, no guarding or rigidity. SPINE: No scoliosis or deformity SKIN: No rashes CENTRAL NERVOUS SYSTEM: No focal deficits, tone is normal in all 4 extremities. EXTREMITIES: There is no peripheral edema, clubbing, or cyanosis. Peripheral pulses are intact. - Labs CBC & Chem 7: 11/29/23 03:50 11/29/23 03:50 Labs: Abnormal Lab Results - Last 24 Hours (Table) 11/28/23 11/28/23 11/28/23 Range/Units 11:04 16:07 20:43 WBC (4.50-10.00) X 10*3/uL RBC (4.10-5.20) X 10*6/uL MCV (80.0-97.0) FL MCH (27.0-32.0) pg MPV (9.5-12.2) FL Immature Gran # (0.00-0.04) X 10*3/uL Neutrophils # (1.80-7.70) X 10*3/uL Eosinophils # (0.04-0.35) X 10*3/uL BUN/Creatinine Ratio (12.00-20.00) Ratio Glucose (70-110) mg/dL POC Glucose (mg/dL) 332 H 327 H 302 H (70-110) mg/dL 11/29/23 11/29/23 11/29/23 Range/Units 03:50 03:50 05:53 WBC 12.59 H (4.50-10.00) X 10*3/uL RBC 3.56 L (4.10-5.20) X 10*6/uL MCV 105.9 H (80.0-97.0) FL MCH 34.3 H (27.0-32.0) pg MPV 12.9 H (9.5-12.2) FL Immature Gran # 0.09 H (0.00-0.04) X 10*3/uL Neutrophils # 10.62 H (1.80-7.70) X 10*3/uL Eosinophils # 0 L (0.04-0.35) X 10*3/uL BUN/Creatinine Ratio 24.11 H (12.00-20.00) Ratio Glucose 183 H (70-110) mg/dL POC Glucose (mg/dL) 184 H (70-110) mg/dL Microbiology - Last 24 Hours (Table) 11/25/23 17:33 Gram Stain - Final Sputum Sputum Culture - Final Assessment and Plan Plan: Acute on chronic dyspnea with limited atelectatic changes in the right midlung and the left lower lobe without evidence of any consolidation with air space disease. Suspect also changes of atelectatic rather than infectious in nature. The viral screening came back negative and the patient has a nonelevated pro-iesha citonin level. The patient did not respond adequately to antibiotics. Continue to be symptomatic. Bronchoscopy was done today Severe tracheal bronchomalacia with mucus retention, probably related to previous respiratory tract infection/bronchitis. No signs of any acute infection. Sputum samples were negative. Therapeutic airway suctioning was done. Bronchoalveolar lavage of the right lower lobe was done, pending further cultures. Currently off antibiotics. Bronchoscopy was done on 11/29/2023. Acute hypoxemic respiratory failure, currently on 3 L of action by nasal cannula Diabetes mellitus type 2, complicated with diabetic neuropathy Hyperlipidemia Hypertension History of paroxysmal atrial fibrillation Hypothyroidism Resting tremor Morbid obesity, with a BMI of 40.2 kg/m Plan: Bronchoscopy was completed and therapeutic airway suctioning was done Bronchial alveolar lavage of the right lower lobe was done Awaiting further cultures Keep antibiotics and hold Continue same treatment with bronchodilators and steroids Completed swallow evaluation and the patient did not have any significant aspiration. There was some limited penetration. Continue same treatment Continue 60 mg mg of IV Solu-Medrol every 6 hours and monitor the blood sugars Provide the patient senna spirometer Robitussin for cough and congestion CAT scan of the chest was reviewed. Chest x-ray was reviewed. We'll make further recommendations based on her progress. Anticipate at least on clinical improvement following the bronchoscopy.
--- NOTE | 2023-11-29 14:26 | P.PCN ---
Date of Procedure: 11/29/23 Preoperative Diagnosis: COPD, recent treatment for pneumonia and ongoing shortness of breath Postoperative Diagnosis: Severe tracheal bronchomalacia seen via bronchoscopy Therapeutic airway suctioning and removal of mucous plugs Procedure(s) Performed: Flexible bronchoscopy Airway inspection Therapeutic airway suctioning Bronchial lavage of the right lower lobe Anesthesia: MAC Surgeon: Roberto Schreiber Estimated Blood Loss (ml): 0 Pathology: other Condition: stable Disposition: floor Operative Findings: This procedure was done under conscious sedation and this was done in the endoscopy suite. A consent was signed. A timeout was done. Indication for the procedure is persistent cough and congestion and shortness of breath post pneumonia. Atelectatic changes seen in the lung bases bilaterally on chest x- ray and CAT scan of the chest This procedure was done while the patient being on a full facemask in the high flow oxygen nasal cannula. Her pulse ox was 98% and there was no desaturation encountered throughout the procedure. The flexible bronchoscope was easily advanced from the right nostril into the upper airway and examination of the posterior pharynx, larynx, epiglottis, vallecula, arytenoids and the vocal cords showed no significant abnormality or pathology. Lidocaine was applied to the vocal cord and following that the flexible bronchoscope was advanced into the upper trachea. Immediately, it was obvious that the patient had severe tracheal bronchomalacia. The airways were completely collapsing with exhalation causing significant limitation of respiratory clearance of secretions. The patient has copious amount of creamy white rest or secretions retained in the trachea, bilateral mainstem bronchi and various segments of the lower lobes laterally. Therapeutic airway suctioning was done. There trachea was cleared from rest or secretions and a total of 15-20 mL of rest or secretions were aspirated. Airway inspection was completed. There was also bronchomalacia that was severe. Visualized airways included bilateral mainstem bronchi, right upper lobe bronchus, bronchus intermedius, right middle lobe bronchus, right lower lobe bronchus, left upper lobe bronchus and left lower lobe bronchus. The various 10 segments on the right and a segments on the left were also inspected. The bronchial mucosa was slightly inflamed and friable and erythematous. A bronchial lavage of the right lower lobe was done. 20 mL of fluid was aspirated after infusing 40 mL of saline. No complications. Bronchoscope was removed. Oxygen desaturations. The samples were sent for microbial analysis. Patient was transferred back to her room without any complications.
[2023-11-29 16:40] LABS: Glucose,Whole Blood 217 mg/dL (70-110)
[2023-11-29 19:09] LABS: Glucose,Whole Blood 233 mg/dL (70-110)
[2023-11-29] MEDS: ATORVASTATIN 40 MG TAB PO SCH (21:49)
[2023-11-29] MEDS: LORazepam 0.5 MG TAB PO SCH (21:50)
[2023-11-29] MEDS: AMITRIPTYLINE HCL 25 MG TAB PO SCH (21:50)
[2023-11-29 22:34] LABS: Mycoplasma IgG Antibody (EIA) 1.05 INDEX (<=0.90); Mycoplasma IgM Antibody 0.16 INDEX (<=0.90)
[2023-11-30] MEDS: SODIUM CHLORIDE 0.9% 1,000 ML IV SCH (05:53)
[2023-11-30 06:01] LABS: Glucose,Whole Blood 184 mg/dL (70-110)
[2023-11-30] MEDS: methylPREDNISolone SOD SUCCI 125 MG/2 ML VIAL IV SCH ×4 (06:22→23:05)
[2023-11-30] MEDS: INSULIN ASPART (NovoLOG) 100 UNIT/ML VIAL SQ SCH ×7 (06:22→22:01)
[2023-11-30] MEDS: INSULIN DETEMIR (LEVEMIR) 100 UNIT/ML SYR SQ SCH (06:24)
[2023-11-30] MEDS: glipiZIDE 5 MG TAB PO SCH ×2 (06:24→17:45)
[2023-11-30] MEDS: ACARBOSE 25 MG TAB PO SCH ×3 (06:24→17:45)
[2023-11-30] MEDS: LEVOTHYROXINE 50 MCG TAB PO SCH (06:24)
[2023-11-30 08:44] LABS: HCT 35.4 % (37.2-46.3); HGB 11.5 g/dL (12.0-15.0); MCH 34.4 pg (27.0-32.0); MCHC 32.5 g/dL (32.0-37.0); Mean Platelet Volume 12.9 FL (9.5-12.2); NRBC Per 100 WBC 0 X 10*3/uL (0.00-0.01); Platelet Count 244 X 10*3/uL (140-440); RBC 3.34 X 10*6/uL (4.10-5.20); RDW 13.2 % (11.5-14.5); WBC 13.25 X 10*3/uL (4.50-10.00)
[2023-11-30 08:45] LABS: Basophils # (A) 0.02 X 10*3/uL (0.00-0.10); Basophils % (A) 0.2 %; Eosinophils # (A) 0 X 10*3/uL (0.04-0.35); Eosinophils % (A) 0 %; Lymphocytes # (A) 0.91 X 10*3/uL (0.90-5.00); Lymphocytes % (A) 6.9 %; Monocytes # (A) 0.65 X 10*3/uL (0.20-1.00); Monocytes % (A) 4.9 %; Neutrophils # (A) 11.59 X 10*3/uL (1.80-7.70); Neutrophils % (A) 87.4 %
[2023-11-30] MEDS: IPRATROPIUM-ALBUTEROL 3 ML NEB INHALATION SCH ×4 (08:54→21:59)
[2023-11-30] MEDS: BUDESONIDE 0.5 MG/2 ML NEBU INHALATION SCH ×2 (08:54→21:59)
[2023-11-30 08:59] LABS: Blood Urea Nitrogen 26.1 mg/dL (9.0-27.0); Calcium 9.5 mg/dL (8.7-10.3); Carbon Dioxide 29.7 mmol/L (21.6-31.8); Chloride 102 mmol/L (96-109); Glucose 175 mg/dL (70-110); Potassium 4.8 mmol/L (3.5-5.5); Sodium 139 mmol/L (135-145)
[2023-11-30] MEDS: HEPARIN SODIUM,PORCINE 5,000 UNIT/ML 1 ML VIAL SQ SCH ×2 (09:35→22:01)
[2023-11-30] MEDS: GABAPENTIN 300 MG CAP PO SCH ×2 (09:36→22:00)
[2023-11-30] MEDS: ASPIRIN 81 MG PO SCH (09:36)
[2023-11-30] MEDS: traMADol 50 MG TAB PO SCH ×2 (09:36→22:01)
[2023-11-30] MEDS: CYANOCOBALAMIN 500 MCG TAB PO SCH (09:36)
[2023-11-30] MEDS: SOTALOL 80 MG TAB PO SCH ×2 (09:36→22:00)
[2023-11-30] MEDS: THIAMINE 100 MG TAB PO SCH (09:36)
[2023-11-30] MEDS: ISOSORBIDE MONONITRATE ER 60 MG TAB.ER.24H PO SCH (09:36)
[2023-11-30] MEDS: CARBIDOPA-LEVODOPA 25-100 MG 1 EACH TAB PO SCH ×3 (09:36→22:00)
[2023-11-30] MEDS: CHOLECALCIFEROL 125 MCG (5000 IU) TABLET PO SCH (09:36)
[2023-11-30] MEDS: FUROSEMIDE 10 MG TAB PO SCH (09:36)
[2023-11-30] MEDS: CLOPIDOGREL 75 MG TAB PO SCH (09:36)
[2023-11-30] MEDS: MAGNESIUM OXIDE 400 MG TAB PO SCH (09:37)
[2023-11-30] MEDS: LOSARTAN 50 MG TAB PO SCH (09:37)
[2023-11-30] MEDS: LACTOBACILLUS ACIDOPHILUS/PECT 1 EACH CAPSULE PO SCH (09:37)
[2023-11-30] MEDS: ARTIFICIAL TEARS-HYPROMELLOSE DROPS 15 ML BTL BOTH EYES SCH ×2 (09:47→22:11)
[2023-11-30 11:24] LABS: Glucose,Whole Blood 277 mg/dL (70-110)
--- NOTE | 2023-11-30 14:20 | P.PN ---
Subjective Progress Note Date: 11/30/23 I am seeing this patient in consultation today to 11/24/2023 on the general medical floor after she was transferred from [facility] with concerns of pneumonia. Patient is a 83-year-old white female with past medical history significant for atrial fibrillation, diabetes mellitus, neuropathy, hyp erlipidemia, hypertension, hypothyroidism, among other things. Denies history of COPD or asthma. Patient does reside at [facility]. She is wheelchair- bound. Apparently, she was treated at [facility] for pneumonia about one and 1/2 weeks ago. She did not improve, and was sent to [facility]. CT of the chest at the outside facility showed low lung volumes, scattered groundglass opacities, a focal consolidation within the right middle lobe concerning for developing pneumonia or atelectasis, bibasilar atelectasis, trace pleural left effusion, and likely fluid within the right minor fissure. Patient was transferred to our facility yesterday afternoon. She is currently sitting up in bed, on 3 L per min nasal cannula, in no acute distress. She does not wear home oxygen. She does have persistent congested nonproductive cough. States that her cough was productive with yellow sputum earlier in the week. She denies any fevers, chest pains. She does become dyspneic even with talking. She has audible wheezing. Denies any nausea, vomiting, abdominal pain, diarrhea. Chest x-ray at our facility shows mild opacities in the right midlung likely representing atelectasis, however, underlying developing pneumonia could not be excluded. CBC shows a WBC count of 10.9, hemoglobin 11.9, hematocrit 36.2, platelets 233. BMP has a sodium of 135, potassium 4.7, chloride 99, serum bicarb 27, BUN 31, creatinine 1.18, glucose 245. NT proBNP at outside facility was low. And troponin was not elevated. Normal saline infusing at 100 ML's per hour. Procalcitonin level was 0.09. Negative for influenza, RSV, COVID-19. Urine Legionella antigen pending. Patient was empirically started on a combination of azithromycin and Zosyn. She is currently afebrile. Vital signs are stable. Repeat chest x-ray from today shows some atelectatic changes in the right midlung and the left lower lobe. I also had a chance to review the CAT scan of the chest that was done and [facility], and the patient has some atelectatic changes in the right midlung and some chronic atelectatic change in the left lower lobe. No evidence of any pulmonary infection or pneumonia at this point in time. The patient has a low pro-calcitonin level. Nevertheless, the patient is bronchospastic and wheezy. Denies having any previous history of smoking. She is essentially poor historian and she is a halfway resident who resides in [facility]. Due to concern for pneumonia, the patient was started on a combination of Zosyn and Zithromax. She was also started on DuoNeb nebulized treatments [id number]. Outpatient medications been resumed. The patient is also on Lasix 10 mg by mouth daily. On today's evaluation of 11/25/2023, lymphs seeing the patient for a follow-up. The patient is clinically stable. Nontender worsening in the rest or status. In fact, the patient is feeling slightly short of breath. She has a congested cough. Unable to bring up much of sputum. She is currently on broad-spectrum antibiotics and the patient is on a combination of Zosyn and vancomycin. She is also on bronchodilators and steroids and IV Solu-Medrol is being admitted at a dose of 60 mg IV push every 6 hours. CAT scan of the chest showed some atelectatic changes in lung bases bilaterally. No clear consolidation or airspace disease. She is afebrile. She has a echoes of 10 with a hemoglobin of 11.1 and a platelet count of 219. Sodium is at 136, BUN is at 22 with a creatinine of 1 and the rest of the electrolytes are within normal limits. She is unable to give a sputum sample. The patient is on 3 L of O2 nasal cannula with a pulse ox of 99%. She is hemodynamically stable. On today's evaluation of 11/26/2023, the patient is being seen for a follow-up. No new complaints. Continues to receive bronchodilators. Continues to receive steroids. Continues to be on broad-spectrum antibiotics. A swallow evaluation will be also done today to evaluate her swallow. On today's evaluation of 11/27/2023, slightly improved and less congested although the patient is having frequent episodes of cough. No aspiration on the swallow evaluation. Remains on antibiotics. Remains on steroids and bronchodilators. No new complaints otherwise for now. Oxygen requirements are unchanged and the patient remains on 3 L O2 nasal cannula the labs show a WBC count of 10.5, hemoglobin 11.4, BUN is at 19 with a creatinine 0.9 and sodium levels of 138. On 11/28/2023, condition is essentially unchanged since yesterday and the patient continues to have congestion and bronchospasm wheezing. I suspect an underlying tracheal bronchomalacia in addition to her COPD. This likely the patient may benefit from a diagnostic and therapeutic bronchoscopy. I'm tentatively try to schedule this procedure for tomorrow. Continue DuoNeb updrafts. Continue IV Solu-Medrol. Continue diuretics and the patient is on Lasix 10 mg by mouth daily. No other significant events otherwise for now. Labs were checked and the patient has a white cell count of 11, hemoglobin of 11 and a platelet count of 240. the electrolytes are all stable. On 11/29/2023, the patient is essentially the same condition. Due to lack of improvement, and due to a congested cough with wheeze, I decided to proceed with a bronchoscopy today. Bronchoscopy was done and the patient was found to have severe tracheal bronchomalacia and some mild mucosal inflammatory changes and there was copious amounts of creamy white rest or secretions within the patient's airways. Therapeutic airway suctioning was done. The bronchial lavage of the right lower lobe was done. The patient was kept on bro nchodilators and steroids. The patient's has no other new complaints otherwise for now. Chest x-ray showed atelectatic changes in lung bases bilaterally. The pro-calcitonin level is nonelevated. The white cycles of 12.5, hemoglobin is 12 and a platelet count is at 256. Sodium is at 140, potassium is 4.7, BUN is at 21 with a creatinine of 0.9. Calcium levels at 9.9. The collected bronchial l avage was sent for microbial analysis. Sputum sample was also negative for any microbial growth that was collected on 11/17/2023. Antibiotics and currently on hold. Pro-calcitonin level is nonelevated. The patient is seen today 11/30/2023 and follow-up on the regular medical floor. She is currently awake and alert resting comfortably in bed. She is been treated for multifocal atelectatic changes. Her pro-calcitonin was 0.09. Her sputum culture revealed no growth. White count 13.2. Hemoglobin 11.5. Platelets 244. Sodium 139. Potassium 4.8. Bicarb 29. BUN 26. Creatinine 0.9. Glucose 175. She did undergo bronchoscopy with bronchial alveolar lavage yesterday and is feeling quite a bit better. Lavage of the right lower lobe cultures are pending. She is continued on DuoNeb inhalations, Pulmicort inhalations, Solu-Medrol. Objective - Vital Signs Vital signs: Vital Signs Temp 97.3 F L 11/30/23 07:49 Pulse 65 11/30/23 12:09 Resp 17 11/30/23 07:49 BP 158/66 11/30/23 07:49 Pulse Ox 96 11/30/23 08:58 FiO2 Intake & Output 11/29/23 11/30/23 11/30/23 18:59 06:59 18:59 Intake Total 200 1000 118 Output Total 1350 250 Balance -1150 750 118 Intake: IV 200 Intake, IV Titration 600 Amount Sodium Chloride 0.9% 1, 600 000 ml @ 50 mls/hr IV . Q[facility]H [facility] Rx#:[id number] Oral 400 118 Output: Urine 1350 250 Other: Voiding Method External Catheter External Catheter External Catheter # Voids 1 1 # Bowel Movements 1 - Exam GENERAL EXAM: Alert, 83-year-old obese female, resting tremor, in no apparent distress. Remains on 3 L of oxygen per nasal cannula HEAD: Normocephalic and atraumatic EYES: Normal reaction of pupils, equal size. NOSE: Clear with pink turbinates. THROAT: No erythema or exudates. NECK: No masses, no JVD. CHEST: No chest wall deformity. LUNGS: Equal air entry with expiratory wheezes and rhonchi throughout. Congested cough. No conversational dyspnea or accessory muscle use.. CVS: S1 and S2 normal with no audible murmur, irregular rhythm. No extra heart sounds ABDOMEN: No hepatosplenomegaly, active bowel sounds, no guarding or rigidity. SPINE: No scoliosis or deformity SKIN: No rashes CENTRAL NERVOUS SYSTEM: No focal deficits, significant lower extremity weakness, wheelchair bound, tone is normal in all 4 extremities. EXTREMITIES: There is no peripheral edema, clubbing, or cyanosis. Peripheral pulses are intact. - Labs CBC & Chem 7: 11/30/23 04:30 11/30/23 04:30 Labs: Abnormal Lab Results - Last 24 Hours (Table) 11/24/23 11/29/23 11/29/23 Range/Units 12:58 16:38 19:08 WBC (4.50-10.00) X 10*3/uL RBC (4.10-5.20) X 10*6/uL Hgb (12.0-15.0) g/dL Hct (37.2-46.3) % MCV (80.0-97.0) FL MCH (27.0-32.0) pg MPV (9.5-12.2) FL Immature Gran # (0.00-0.04) X 10*3/uL Neutrophils # (1.80-7.70) X 10*3/uL Eosinophils # (0.04-0.35) X 10*3/uL BUN/Creatinine Ratio (12.00-20.00) Ratio Glucose (70-110) mg/dL POC Glucose (mg/dL) 217 H 233 H (70-110) mg/dL Mycoplasma pneumon IgG 1.05 H (<=0.90) INDEX 11/30/23 11/30/23 11/30/23 Range/Units 04:30 04:30 06:00 WBC 13.25 H (4.50-10.00) X 10*3/uL RBC 3.34 L (4.10-5.20) X 10*6/uL Hgb 11.5 L (12.0-15.0) g/dL Hct 35.4 L (37.2-46.3) % MCV 106.0 H (80.0-97.0) FL MCH 34.4 H (27.0-32.0) pg MPV 12.9 H (9.5-12.2) FL Immature Gran # 0.08 H (0.00-0.04) X 10*3/uL Neutrophils # 11.59 H (1.80-7.70) X 10*3/uL Eosinophils # 0 L (0.04-0.35) X 10*3/uL BUN/Creatinine Ratio 29.00 H (12.00-20.00) Ratio Glucose 175 H (70-110) mg/dL POC Glucose (mg/dL) 184 H (70-110) mg/dL Mycoplasma pneumon IgG (<=0.90) INDEX 11/30/23 Range/Units 11:22 WBC (4.50-10.00) X 10*3/uL RBC (4.10-5.20) X 10*6/uL Hgb (12.0-15.0) g/dL Hct (37.2-46.3) % MCV (80.0-97.0) FL MCH (27.0-32.0) pg MPV (9.5-12.2) FL Immature Gran # (0.00-0.04) X 10*3/uL Neutrophils # (1.80-7.70) X 10*3/uL Eosinophils # (0.04-0.35) X 10*3/uL BUN/Creatinine Ratio (12.00-20.00) Ratio Glucose (70-110) mg/dL POC Glucose (mg/dL) 277 H (70-110) mg/dL Mycoplasma pneumon IgG (<=0.90) INDEX Assessment and Plan Assessment: Acute on chronic dyspnea with limited atelectatic changes in the right midlung and the left lower lobe without evidence of any consolidation with air space disease. Suspect also changes of atelectatic rather than infectious in nature. The viral screening came back negative and the patient has a nonelevated pro-calcitonin level. The patient did not respond adequately to antibiotics. Continue to be symptomatic. Bronchoscopy was done today Severe tracheal bronchomalacia with mucus retention, probably related to pre vious respiratory tract infection/bronchitis. No signs of any acute infection. Sputum samples were negative. Therapeutic airway suctioning was done. Bronchoalveolar lavage of the right lower lobe was done, pending further cultures. Currently off antibiotics. Bronchoscopy was done on 11/29/2023. Acute hypoxemic respiratory failure, currently on 3 L of action by nasal cannula Diabetes mellitus type 2, complicated with diabetic neuropathy Hyperlipidemia Hypertension History of paroxysmal atrial fibrillation Hypothyroidism Resting tremor Morbid obesity, with a BMI of 40.2 kg/m Plan: The patient was seen and evaluated Labs and medications reviewed Bronchial wash cultures pending Continue the current treatment plan Titrate down the FiO2 as tolerated Plan is to return to [facility] at discharge I have personally seen and examined the patient, performed the documentation and the assessment and plan as written. Number of minutes spent on the visit: 10.
[2023-11-30 16:22] VITALS: BMI 40.1
[2023-11-30 16:26] LABS: Glucose,Whole Blood 218 mg/dL (70-110)
--- NOTE | 2023-11-30 16:36 | P.PN ---
Subjective Progress Note Date: 11/30/23 Patient is an 83 year old female admitted for pneumonia sent from [place]. Patient was treated outpatient and had minimal improvement. Chest xray reveals a right mild lung infiltrate with atelectasis at the left lung base. Patient has poor inspiratory effort and weak cough unable to clear the secretions. She remains on zosyn and pulmonary following. Patient will be considered for bronchoscopy. Viral testing negative for rsv, influenza or covid, legionella is negative and mycoplasma currently pending. Remains on room air. 11/26/2023 Patient is evaluated today sitting up in bed. Has increased congestion since yesterday. Remains on IV zosyn and IV solumedrol. Patient was evaluated by speech therapy diet down graded to dysphagia level 3 chopped and unable to rule out silent aspiration. For this reason patient going for MBS today. 11/27/2023 Patient is lying in the bed. Awake alert and oriented. Denies any complaints of worsening shortness of breath. Breathing status is improving slowly. Able to tolerate oral diet without aspiration. Patient has been afebrile. Requiring 3 L oxygen via nasal cannula. No nausea vomiting abdominal pain or diarrhea. Laboratory data showed WBC 10.5 hemoglobin 11.4 and platelets 231 Sodium 138 potassium 4.7 chloride 100 bicarb is 27.9 BUN 19.6 and creatinine 0.9 and blood sugar is 177 and A1c level is 7.5. Patient is being continued on IV Solu-Medrol 60 mg every 6 hourly Patient completed antibiotic course with Zosyn 5 days and azithromycin for 3 days. Pulmonary is on board. Patient underwent MBS on 1229 which showed intermittent penetration with thin liquids. Premature spillage of thin liquids via straw. No aspiration seen. Patient is currently on dysphagia level 2 diet. 11-30 Patient is seen and evaluated and follow-up with pulmonary following status post bronchoscopy with BAL and lavage of the right lower lobe cultures are currently pending. Patient is continued on breathing inhalational treatments along with IV steroids and being monitored off antibiotics. Patient currently on 3 L via nasal cannula and reports she wears this outpatient. Will discuss further with pulmonary on discharge planning as patient will be returning to [facility]. Patient is currently afebrile with no reports of chest pain or worsening shortness of breath. Labs reviewed and within normal limits other than blood sugars being mildly elevated. Will continue on Accu-Cheks before meals and at bedtime and continue current regimen. Review of Systems Constitutional: Denied any fatigue denied any fever. Cardio vascular: denied any chest pain, palpitations Gastrointestinal: denied any nausea, vomiting, diarrhea Pulmonary: Denies worsening shortness of breath, reports continued cough Neurologic denied any new focal deficits, generally weak All inpatient medications were reviewed and appropriate changes in these medications as dictated in the interval history and assessment and plan. PHYSICAL EXAMINATION: GENERAL: The patient is alert and oriented x3, not in any acute distress. Well developed, well nourished. Morbidly obese HEENT: Pupils are round and equally reacting to light. EOMI. No scleral icterus. No conjunctival pallor. Normocephalic, atraumatic. No pharyngeal erythema. No thyromegaly. CARDIOVASCULAR: S1 and S2 present. No murmurs, rubs, or gallops. PULMONARY: Bibasilar crackles and scattered wheezing. Congested cough. ABDOMEN: Soft, nontender, nondistended, normoactive bowel sounds. No palpable organomegaly. MUSCULOSKELETAL: No joint swelling or deformity. EXTREMITIES: No cyanosis, clubbing, or pedal edema. NEUROLOGICAL: Gross neurological examination did not reveal any focal deficits. Diffuse weakness. SKIN: No rashes. Assessment and Plan -Bilateral atelectasis in the right mid lung and left lower lobe, patient was continued on empiric antibiotic coverage x 5 days although procalcitonin level is normal. - Acute tracheobronchitis being treated with systemic steroids and patient is encouraged to use incentive spirometer 10 x an hour while awake. Patient is reaching 500. Patient is status post bronchoscopy with BAL and right cultures pending -Acute hypoxemic respiratory failure secondary to above, wean oxygen as tolerated patient with oxygen saturations of 98% on 3L of oxygen. -Dysphagia. Status post MBS which showed intermittent penetration with thin liquids. No aspiration seen. Patient is on dysphagia level 2 diet currently. -History of atrial fibrillation, paroxysmal not anticoagulated -Diabetes Mellitus type 2 continues on sliding scale insulin and levemir for the steroid induced hyperglycemia -Hyperlipidemia continues on lipitor -Hypertension continues on antihypertensives -Sleep apnea -Hypothyroidism -Obesity -History of coronary artery disease and prior cardiac stenting GI prophylaxis DVT prophylaxis: Subcu heparin No code Plan: PT/OT therapy to evaluate the patient as patient will be going back to [facility] on discharge Pulmonary following and patient is status post bronchoscopy with BAL and cultures from lavage currently pending of the right lower lobe. Encouraged weaning FiO2 as tolerated and continued on IV steroids along with breathing treatments Continue monitoring Accu-Cheks before meals and at bedtime and continue current regimen Being monitored off antibiotics and sputum culture was negative Patient to continue on dysphagia level II diet with aspiration precautions as patient is high risk and would recommend head of the bed elevated 45 at all times and supervision with meals Will discuss further with pulmonary along with case management on discharge planning Due to multiple complex medical issues, prognosis is guarded The impression and plan of care has been dictated by Stacey Toure, Nurse Practitioner as directed. Dr. Olive MD I have performed a history and examination and MDM of this patient, discussed the same with the dictator, and agree with the dictator's assessment and plan as written ,documented as a scribe. Based on total visit time, I have performed more than 50% of the visit. Objective - Vital Signs Vital signs: Vital Signs Temp 97.3 F L 11/30/23 07:49 Pulse 66 11/30/23 09:06 Resp 17 11/30/23 07:49 BP 158/66 11/30/23 07:49 Pulse Ox 96 11/30/23 08:58 FiO2 Intake & Output 11/29/23 11/30/23 11/30/23 18:59 06:59 18:59 Intake Total 200 1000 118 Output Total 1350 250 Balance -1150 750 118 Intake: IV 200 Intake, IV Titration 600 Amount Sodium Chloride 0.9% 1, 600 000 ml @ 50 mls/hr IV . Q20H [facility] Rx#:[id number] Oral 400 118 Output: Urine 1350 250 Other: Voiding Method External Catheter External Catheter # Voids 1 1 # Bowel Movements 1 - Labs CBC & Chem 7: 11/30/23 04:30 11/30/23 04:30 Labs: Abnormal Lab Results - Last 24 Hours (Table) 11/24/23 11/29/23 11/29/23 Range/Units 12:58 03:50 03:50 WBC 12.59 H (4.50-10.00) X 10*3/uL RBC 3.56 L (4.10-5.20) X 10*6/uL Hgb (12.0-15.0) g/dL Hct (37.2-46.3) % MCV 105.9 H (80.0-97.0) FL MCH 34.3 H (27.0-32.0) pg MPV 12.9 H (9.5-12.2) FL Immature Gran # 0.09 H (0.00-0.04) X 10*3/uL Neutrophils # 10.62 H (1.80-7.70) X 10*3/uL Eosinophils # 0 L (0.04-0.35) X 10*3/uL BUN/Creatinine Ratio 24.11 H (12.00-20.00) Ratio Glucose 183 H (70-110) mg/dL POC Glucose (mg/dL) (70-110) mg/dL Mycoplasma pneumon IgG 1.05 H (<=0.90) INDEX 11/29/23 11/29/23 11/29/23 Range/Units 13:24 16:38 19:08 WBC (4.50-10.00) X 10*3/uL RBC (4.10-5.20) X 10*6/uL Hgb (12.0-15.0) g/dL Hct (37.2-46.3) % MCV (80.0-97.0) FL MCH (27.0-32.0) pg MPV (9.5-12.2) FL Immature Gran # (0.00-0.04) X 10*3/uL Neutrophils # (1.80-7.70) X 10*3/uL Eosinophils # (0.04-0.35) X 10*3/uL BUN/Creatinine Ratio (12.00-20.00) Ratio Glucose (70-110) mg/dL POC Glucose (mg/dL) 185 H 217 H 233 H (70-110) mg/dL Mycoplasma pneumon IgG (<=0.90) INDEX 11/30/23 11/30/23 11/30/23 Range/Units 04:30 04:30 06:00 WBC 13.25 H (4.50-10.00) X 10*3/uL RBC 3.34 L (4.10-5.20) X 10*6/uL Hgb 11.5 L (12.0-15.0) g/dL Hct 35.4 L (37.2-46.3) % MCV 106.0 H (80.0-97.0) FL MCH 34.4 H (27.0-32.0) pg MPV 12.9 H (9.5-12.2) FL Immature Gran # 0.08 H (0.00-0.04) X 10*3/uL Neutrophils # 11.59 H (1.80-7.70) X 10*3/uL Eosinophils # 0 L (0.04-0.35) X 10*3/uL BUN/Creatinine Ratio 29.00 H (12.00-20.00) Ratio Glucose 175 H (70-110) mg/dL POC Glucose (mg/dL) 184 H (70-110) mg/dL Mycoplasma pneumon IgG (<=0.90) INDEX
[2023-11-30 20:37] LABS: Glucose,Whole Blood 224 mg/dL (70-110)
[2023-11-30] MEDS: AMITRIPTYLINE HCL 25 MG TAB PO SCH (22:00)
[2023-11-30] MEDS: LORazepam 0.5 MG TAB PO SCH (22:01)
[2023-11-30] MEDS: ATORVASTATIN 40 MG TAB PO SCH (22:01)
[2023-11-30] MEDS: guaiFENesin SYRUP 100MG/5ML 200 MG/10 ML CUP PO PRN (22:34)
[2023-12-01] MEDS: SODIUM CHLORIDE 0.9% 1,000 ML IV SCH (05:30)
[2023-12-01 06:08] LABS: Glucose,Whole Blood 196 mg/dL (70-110)
[2023-12-01] MEDS: guaiFENesin SYRUP 100MG/5ML 200 MG/10 ML CUP PO PRN ×2 (06:25→12:28)
[2023-12-01] MEDS: ACARBOSE 25 MG TAB PO SCH ×2 (06:25→12:01)
[2023-12-01] MEDS: glipiZIDE 5 MG TAB PO SCH (06:25)
[2023-12-01] MEDS: INSULIN ASPART (NovoLOG) 100 UNIT/ML VIAL SQ SCH ×4 (06:25→12:01)
[2023-12-01] MEDS: LEVOTHYROXINE 50 MCG TAB PO SCH (06:26)
[2023-12-01] MEDS: INSULIN DETEMIR (LEVEMIR) 100 UNIT/ML SYR SQ SCH (06:26)
[2023-12-01] MEDS: methylPREDNISolone SOD SUCCI 125 MG/2 ML VIAL IV SCH ×2 (06:26→12:28)
[2023-12-01] MEDS: IPRATROPIUM-ALBUTEROL 3 ML NEB INHALATION SCH ×3 (08:43→16:11)
[2023-12-01] MEDS: BUDESONIDE 0.5 MG/2 ML NEBU INHALATION SCH (08:43)
[2023-12-01 08:55] VITALS: TEMP 97.5
[2023-12-01] MEDS: SOTALOL 80 MG TAB PO SCH (09:42)
[2023-12-01] MEDS: traMADol 50 MG TAB PO SCH (10:06)
[2023-12-01] MEDS: FUROSEMIDE 10 MG TAB PO SCH (10:06)
[2023-12-01] MEDS: CHOLECALCIFEROL 125 MCG (5000 IU) TABLET PO SCH (10:06)
[2023-12-01] MEDS: LACTOBACILLUS ACIDOPHILUS/PECT 1 EACH CAPSULE PO SCH (10:06)
[2023-12-01] MEDS: THIAMINE 100 MG TAB PO SCH (10:06)
[2023-12-01] MEDS: LOSARTAN 50 MG TAB PO SCH (10:07)
[2023-12-01] MEDS: GABAPENTIN 300 MG CAP PO SCH (10:07)
[2023-12-01] MEDS: CYANOCOBALAMIN 500 MCG TAB PO SCH (10:07)
[2023-12-01] MEDS: HEPARIN SODIUM,PORCINE 5,000 UNIT/ML 1 ML VIAL SQ SCH (10:07)
[2023-12-01] MEDS: CARBIDOPA-LEVODOPA 25-100 MG 1 EACH TAB PO SCH (10:07)
[2023-12-01] MEDS: ASPIRIN 81 MG PO SCH (10:07)
[2023-12-01] MEDS: CLOPIDOGREL 75 MG TAB PO SCH (10:07)
[2023-12-01] MEDS: ISOSORBIDE MONONITRATE ER 60 MG TAB.ER.24H PO SCH (10:07)
[2023-12-01] MEDS: MAGNESIUM OXIDE 400 MG TAB PO SCH (10:07)
[2023-12-01] MEDS: ARTIFICIAL TEARS-HYPROMELLOSE DROPS 15 ML BTL BOTH EYES SCH (10:09)
[2023-12-01 11:41] LABS: Glucose,Whole Blood 316 mg/dL (70-110)
--- NOTE | 2023-12-01 12:44 | P.PN ---
Subjective Progress Note Date: 12/01/23 I am seeing this patient in consultation today to 11/24/2023 on the general medical floor after she was transferred from [facility] with concerns of pneumonia. Patient is a 83-year-old white female with past medical history significant for atrial fibrillation, diabetes mellitus, neuropathy, hyp erlipidemia, hypertension, hypothyroidism, among other things. Denies history of COPD or asthma. Patient does reside at [facility]. She is wheelchair- bound. Apparently, she was treated at [facility] for pneumonia about one and 1/2 weeks ago. She did not improve, and was sent to [facility]. CT of the chest at the outside facility showed low lung volumes, scattered groundglass opacities, a focal consolidation within the right middle lobe concerning for developing pneumonia or atelectasis, bibasilar atelectasis, trace pleural left effusion, and likely fluid within the right minor fissure. Patient was transferred to our facility yesterday afternoon. She is currently sitting up in bed, on 3 L per min nasal cannula, in no acute distress. She does not wear home oxygen. She does have persistent congested nonproductive cough. States that her cough was productive with yellow sputum earlier in the week. She denies any fevers, chest pains. She does become dyspneic even with talking. She has audible wheezing. Denies any nausea, vomiting, abdominal pain, diarrhea. Chest x-ray at our facility shows mild opacities in the right midlung likely representing atelectasis, however, underlying developing pneumonia could not be excluded. CBC shows a WBC count of 10.9, hemoglobin 11.9, hematocrit 36.2, platelets 233. BMP has a sodium of 135, potassium 4.7, chloride 99, serum bicarb 27, BUN 31, creatinine 1.18, glucose 245. NT proBNP at outside facility was low. And troponin was not elevated. Normal saline infusing at 100 ML's per hour. Procalcitonin level was 0.09. Negative for influenza, RSV, COVID-19. Urine Legionella antigen pending. Patient was empirically started on a combination of azithromycin and Zosyn. She is currently afebrile. Vital signs are stable. Repeat chest x-ray from today shows some atelectatic changes in the right midlung and the left lower lobe. I also had a chance to review the CAT scan of the chest that was done and [facility], and the patient has some atelectatic changes in the right midlung and some chronic atelectatic change in the left lower lobe. No evidence of any pulmonary infection or pneumonia at this point in time. The patient has a low pro-calcitonin level. Nevertheless, the patient is bronchospastic and wheezy. Denies having any previous history of smoking. She is essentially poor historian and she is a prison resident who resides in [facility]. Due to concern for pneumonia, the patient was started on a combination of Zosyn and Zithromax. She was also started on DuoNeb nebulized treatments [id number]. Outpatient medications been resumed. The patient is also on Lasix 10 mg by mouth daily. On today's evaluation of 11/25/2023, lymphs seeing the patient for a follow-up. The patient is clinically stable. Nontender worsening in the rest or status. In fact, the patient is feeling slightly short of breath. She has a congested cough. Unable to bring up much of sputum. She is currently on broad-spectrum antibiotics and the patient is on a combination of Zosyn and vancomycin. She is also on bronchodilators and steroids and IV Solu-Medrol is being admitted at a dose of 60 mg IV push every 6 hours. CAT scan of the chest showed some atelectatic changes in lung bases bilaterally. No clear consolidation or airspace disease. She is afebrile. She has a echoes of 10 with a hemoglobin of 11.1 and a platelet count of 219. Sodium is at 136, BUN is at 22 with a creatinine of 1 and the rest of the electrolytes are within normal limits. She is unable to give a sputum sample. The patient is on 3 L of O2 nasal cannula with a pulse ox of 99%. She is hemodynamically stable. On today's evaluation of 11/26/2023, the patient is being seen for a follow-up. No new complaints. Continues to receive bronchodilators. Continues to receive steroids. Continues to be on broad-spectrum antibiotics. A swallow evaluation will be also done today to evaluate her swallow. On today's evaluation of 11/27/2023, slightly improved and less congested although the patient is having frequent episodes of cough. No aspiration on the swallow evaluation. Remains on antibiotics. Remains on steroids and bronchodilators. No new complaints otherwise for now. Oxygen requirements are unchanged and the patient remains on 3 L O2 nasal cannula the labs show a WBC count of 10.5, hemoglobin 11.4, BUN is at 19 with a creatinine 0.9 and sodium levels of 138. On 11/28/2023, condition is essentially unchanged since yesterday and the patient continues to have congestion and bronchospasm wheezing. I suspect an underlying tracheal bronchomalacia in addition to her COPD. This likely the patient may benefit from a diagnostic and therapeutic bronchoscopy. I'm tentatively try to schedule this procedure for tomorrow. Continue DuoNeb updrafts. Continue IV Solu-Medrol. Continue diuretics and the patient is on Lasix 10 mg by mouth daily. No other significant events otherwise for now. Labs were checked and the patient has a white cell count of 11, hemoglobin of 11 and a platelet count of 240. the electrolytes are all stable. On 11/29/2023, the patient is essentially the same condition. Due to lack of improvement, and due to a congested cough with wheeze, I decided to proceed with a bronchoscopy today. Bronchoscopy was done and the patient was found to have severe tracheal bronchomalacia and some mild mucosal inflammatory changes and there was copious amounts of creamy white rest or secretions within the patient's airways. Therapeutic airway suctioning was done. The bronchial lavage of the right lower lobe was done. The patient was kept on bro nchodilators and steroids. The patient's has no other new complaints otherwise for now. Chest x-ray showed atelectatic changes in lung bases bilaterally. The pro-calcitonin level is nonelevated. The white cycles of 12.5, hemoglobin is 12 and a platelet count is at 256. Sodium is at 140, potassium is 4.7, BUN is at 21 with a creatinine of 0.9. Calcium levels at 9.9. The collected bronchial l avage was sent for microbial analysis. Sputum sample was also negative for any microbial growth that was collected on 11/17/2023. Antibiotics and currently on hold. Pro-calcitonin level is nonelevated. The patient is seen today 11/30/2023 and follow-up on the regular medical floor. She is currently awake and alert resting comfortably in bed. She is been treated for multifocal atelectatic changes. Her pro-calcitonin was 0.09. Her sputum culture revealed no growth. White count 13.2. Hemoglobin 11.5. Platelets 244. Sodium 139. Potassium 4.8. Bicarb 29. BUN 26. Creatinine 0.9. Glucose 175. She did undergo bronchoscopy with bronchial alveolar lavage yesterday and is feeling quite a bit better. Lavage of the right lower lobe cultures are pending. She is continued on DuoNeb inhalations, Pulmicort inhalations, Solu-Medrol. The patient is seen today 12/01/2023 in follow-up on the regular medical floor. She is currently resting comfortably in the bed. Awake and alert in no acute distress. Maintaining O2 saturations in the 90s on 4 L/m per nasal cannula. Sputum culture revealed no growth. Blood glucose 196. Currently in a -1.7 L balance. She is continued on DuoNeb inhalations, Pulmicort inhalations, Solu- Medrol. Heparin for DVT prophylaxis. Remains on oral diuretics. Objective - Vital Signs Vital signs: Vital Signs Temp 97.5 F L 12/01/23 07:12 Pulse 67 12/01/23 12:20 Resp 17 12/01/23 07:12 BP 147/79 12/01/23 07:12 Pulse Ox 98 12/01/23 07:12 FiO2 Intake & Output 11/30/23 12/01/23 12/01/23 18:59 06:59 18:59 Intake Total 236 118 Output Total 900 1120 Balance -664 -1120 118 Weight 106.141 kg Intake: Oral 236 118 Output: Urine 900 1120 Other: Voiding Method External Catheter External Catheter # Bowel Movements 1 - Exam GENERAL EXAM: Alert, pleasant 83-year-old obese female, resting tremors, in no apparent distress. Remains on 4 L of oxygen per nasal cannula HEAD: Normocephalic and atraumatic EYES: Normal reaction of pupils, equal size. NOSE: Clear with pink turbinates. THROAT: No erythema or exudates. NECK: No masses, no JVD. CHEST: No chest wall deformity. LUNGS: Equal air entry with expiratory wheezes and rhonchi throughout. Congested cough. No conversational dyspnea or accessory muscle use.. CVS: S1 and S2 normal with no audible murmur, irregular rhythm. No extra heart sounds ABDOMEN: No hepatosplenomegaly, active bowel sounds, no guarding or rigidity. SPINE: No scoliosis or deformity SKIN: No rashes CENTRAL NERVOUS SYSTEM: No focal deficits, significant lower extremity weakness, wheelchair bound, tone is normal in all 4 extremities. EXTREMITIES: There is no peripheral edema, clubbing, or cyanosis. Peripheral pulses are intact. - Labs CBC & Chem 7: 11/30/23 04:30 11/30/23 04:30 Labs: Abnormal Lab Results - Last 24 Hours (Table) 11/30/23 11/30/23 12/01/23 Range/Units 16:25 20:36 06:07 POC Glucose (mg/dL) 218 H 224 H 196 H (70-110) mg/dL 12/01/23 Range/Units 11:36 POC Glucose (mg/dL) 316 H (70-110) mg/dL Assessment and Plan Assessment: Acute on chronic dyspnea with limited atelectatic changes in the right midlung and the left lower lobe without evidence of any consolidation with air space disease. Suspect also changes of atelectatic rather than infectious in nature. The viral screening came back negative and the patient has a nonelevated pro- calcitonin level. Severe tracheal bronchomalacia with mucus retention, probably related to previous respiratory tract infection/bronchitis. No signs of any acute infection. Sputum samples were negative. Therapeutic airway suctioning was done on 11/29/2023. Bronchoalveolar lavage of the right lower lobe was done, pending further cultures. Currently off antibiotics. Acute hypoxemic respiratory failure, currently on 4 L of action by nasal cannula Diabetes mellitus type 2, complicated with diabetic neuropathy Hyperlipidemia Hypertension History of paroxysmal atrial fibrillation Hypothyroidism Resting tremor Morbid obesity, with a BMI of 40.2 kg/m Plan: The patient was seen and evaluated Labs and medications reviewed Sputum culture had revealed no growth Continue the current treatment plan Discontinue Solu-Medrol, continue prednisone taper Titrate down the FiO2 as tolerated Plan is to return to [facility] at discharge I have personally seen and examined the patient, performed the documentation and the assessment and plan as written. Number of minutes spent on the visit: 10.
--- NOTE | 2023-12-01 13:45 | P.DS ---
Providers Date of admission: 11/23/23 14:54 Expected date of discharge: 12/01/23 Attending physician: Mathew Travis MD Consults: 11/23/23 14:49 Consult Physician Routine Consulting Provider: Roberto Schreiber Consult Reason/Comments: dyspnea Do you want consulting provider notified?: Yes Primary care physician: Davy Kaplan Hospital Course: Final diagnosis -Bilateral atelectasis in the right mid lung and left lower lobe, patient was continued on empiric antibiotic coverage x 5 days although procalcitonin level is normal. Will not require antibiotics on discharge - Acute tracheobronchitis status post bronchoscopy with BAL and cultures thus far remain negative -Acute hypoxemic respiratory failure secondary to above, on 3L of oxygen. -Dysphagia. Status post MBS which showed intermittent penetration with thin liquids. No aspiration seen. Patient is on dysphagia level 2 diet currently. -History of atrial fibrillation, paroxysmal not anticoagulated -Diabetes Mellitus type 2 uncontrolled with hyperglycemia, also induced by steroid use -Hyperlipidemia -Hypertension -Sleep apnea -Hypothyroidism -Obesity -History of coronary artery disease and prior cardiac stenting GI prophylaxis DVT prophylaxis: Subcu heparin No code Discharge disposition Patient is being discharged in a stable condition with guarded prognosis to [facility]. Patient will follow-up with Dr. Kaplan in the outpatient setting upon discharge. Patient is to follow-up with pulmonary outpatient as scheduled. Total time taken is greater than 35 minutes. Hospital course This is a 83-year-old female who was recently admitted with increased shortness of breath and admitted for pneumonia being monitored pulmonary following. Patient underwent bronchoscopy with BAL and cultures thus far have been negative. Patient is maintained on antibiotics and has received 5 days of IV antibiotic therapy and will not require further antibiotics per pulmonary and recommending outpatient follow-up. Patient continues on 3 L via nasal cannula and continue to wean FiO2 as tolerated. Patient has been continued on incentive spirometer and needs encouragement with using. Patient to continue a prednisone taper and currently on 30 mg daily. Patient to continue with DuoNeb treatments along with inhalers and was seen and evaluated by speech therapy recommending dysphagia 3 chopped diet and was strongly recommend aspiration precautions with head of the bed elevated 45 and supervision with meals. Patient's blood sugars have been uncontrolled and elevated and continued on sliding scale along with pre-meal and long acting and recommend continue with Accu-Cheks before meals and at bedtime. Possibly steroid-induced hyperglycemia as well. Patient has been cleared by consultations for discharge to [facility]. Please refer to pulmonary notes for further HPI. Currently no reports of chest pain, no worsening shortness of breath, or palpitations. Patient is afebrile. No reports of nausea or vomiting and patient is tolerating diet. Patient will be going to [facility] today. Guarded prognosis. Physical exam: Gen: This is a 83-year-old female who is awake, alert and oriented 1-2, baseline, elderly-appearing, well-developed, morbidly obese HEENT: Head is atraumatic, normocephalic. Pupils equal, round. Sclerae is anicteric. NECK: Supple. No JVD. No lymphadenopathy. No thyromegaly. LUNGS: Breath sounds diminished bilaterally with some scattered bronchial congestion with cough on exam. No significant wheezing noted. No intercostal retractions. HEART: Regular rate and rhythm. No murmur. ABDOMEN: Soft. Obese Bowel sounds are present. No masses. No tenderness. EXTREMITIES: No pedal edema. No calf tenderness. NEUROLOGICAL: Patient is awake, alert and oriented x1-2. Diffusely weak Please refer to medication reconciliation sheet for a list of medications. The impression and plan of care has been dictated by Stacey Toure, Nurse Practitioner as directed. Dr. Olive MD I have performed a history and examination and MDM of this patient, discussed the same with the dictator, and agree with the dictator's assessment and plan as written ,documented as a scribe. Based on total visit time, I have performed more than 50% of the visit. Patient Condition at Discharge: Fair Plan - Discharge Summary Discharge Rx Participant: No New Discharge Prescriptions: New glipiZIDE [Glucotrol] 5 mg PO AC-BID tab Heparin Sodium,Porcine (1 ml) [Heparin Sodium] 5,000 unit SQ Q12HR each INSULIN ASPART (NovoLOG) [NovoLOG (formulary)] 7 unit SQ AC-TID each Budesonide [Pulmicort] 0.5 mg INHALATION RT-BID ml Ipratropium-Albuterol Nebulize [Duoneb 0.5 mg-3 mg/3 ml Soln] 3 ml INHALATION RT-QID each Insulin Detemir (Levemir) [Levemir] 27 unit SQ DAILY@0700 each INSULIN ASPART (NovoLOG) [NovoLOG (formulary)] 0 unit SQ ACHS each Continue Cholecalciferol [Vitamin D3 (125 Mcg = 5000 Iu)] 125 mcg PO DAILY Thiamine [Vitamin B-1] 300 mg PO DAILY Dulaglutide [Trulicity] 1.5 mg SQ FR predniSONE [Deltasone] 40 mg PO DAILY Sotalol [Betapace] 80 mg PO BID Magnesium Hydroxide [Milk of Magnesia] 2,400 mg PO Q48H PRN PRN Reason: Constipation Losartan [Cozaar] 50 mg PO DAILY Loperamide [Imodium] 2 mg PO TID PRN PRN Reason: WATERY STOOLS Isosorbide Mononitrate ER [Imdur] 60 mg PO DAILY Ipratropium-Albuterol Nebulize [Duoneb 0.5 mg-3 mg/3 ml Soln] 3 ml INHALATION RT-DAILY PRN PRN Reason: Shortness Of Breath Clopidogrel [Plavix] 75 mg PO DAILY Atorvastatin [Lipitor] 40 mg PO HS Aspirin 81 mg PO DAILY Amitriptyline HCl [Elavil] 75 mg PO HS Acetaminophen [Tylenol] 650 mg PO Q6H PRN PRN Reason: Pain LORazepam [Ativan] 0.5 mg PO HS #2 tab Gabapentin 300 mg PO DAILY #3 cap Cyanocobalamin [Vitamin B-12] 500 mcg PO DAILY guaiFENesin SYRUP 100MG/5ML [Robitussin] 200 mg PO Q6HR PRN PRN Reason: Cough Carbidopa-Levodopa 25-100 mg [Sinemet 25-100 mg] 1 tab PO TID Magnesium Oxide [Mag-Ox] 400 mg PO DAILY Levothyroxine Sodium [Synthroid] 50 mcg PO DAILY Furosemide [Lasix] 10 mg PO DAILY Cyanocobalamin [Vitamin B-12] 2,000 mcg PO DAILY bisacodyL [Correctol] 10 mg PO DAILY PRN PRN Reason: Constipation Artificial Tears-Hypromellose [Artificial Tear Drops] 1 drop BOTH EYES BID Lactobacillus Acidophilus [Acidophilus] 1 tab PO DAILY Acarbose 50 mg PO AC-TID Gabapentin 600 mg PO HS #2 cap traMADol HCl [Ultram] 50 mg PO BID #4 tab Discontinued metFORMIN HCL [Glucophage] 500 mg PO BID cefTRIAXone SODIUM [Ceftriaxone] 2 gm IV Q24H Discharge Medication List Acarbose 50 mg PO AC-TID 11/23/23 [History] Acetaminophen [Tylenol] 650 mg PO Q6H PRN 11/23/23 [History] Amitriptyline HCl [Elavil] 75 mg PO HS 11/23/23 [History] Artificial Tears-Hypromellose [Artificial Tear Drops] 1 drop BOTH EYES BID 11/23/23 [History] Aspirin 81 mg PO DAILY 11/23/23 [History] Atorvastatin [Lipitor] 40 mg PO HS 11/23/23 [History] Carbidopa-Levodopa 25-100 mg [Sinemet 25-100 mg] 1 tab PO TID 11/23/23 [History] Cholecalciferol [Vitamin D3 (125 Mcg = 5000 Iu)] 125 mcg PO DAILY 11/23/23 [History] Clopidogrel [Plavix] 75 mg PO DAILY 11/23/23 [History] Cyanocobalamin [Vitamin B-12] 2,000 mcg PO DAILY 11/23/23 [History] Cyanocobalamin [Vitamin B-12] 500 mcg PO DAILY 11/23/23 [History] Dulaglutide [Trulicity] 1.5 mg SQ FR 11/23/23 [History] Furosemide [Lasix] 10 mg PO DAILY 11/23/23 [History] Ipratropium-Albuterol Nebulize [Duoneb 0.5 mg-3 mg/3 ml Soln] 3 ml INHALATION RT-DAILY PRN 11/23/23 [History] Isosorbide Mononitrate ER [Imdur] 60 mg PO DAILY 11/23/23 [History] Lactobacillus Acidophilus [Acidophilus] 1 tab PO DAILY 11/23/23 [History] Levothyroxine Sodium [Synthroid] 50 mcg PO DAILY 11/23/23 [History] Loperamide [Imodium] 2 mg PO TID PRN 11/23/23 [History] Losartan [Cozaar] 50 mg PO DAILY 11/23/23 [History] Magnesium Hydroxide [Milk of Magnesia] 2,400 mg PO Q48H PRN 11/23/23 [History] Magnesium Oxide [Mag-Ox] 400 mg PO DAILY 11/23/23 [History] Sotalol [Betapace] 80 mg PO BID 11/23/23 [History] Thiamine [Vitamin B-1] 300 mg PO DAILY 11/23/23 [History] bisacodyL [Correctol] 10 mg PO DAILY PRN 11/23/23 [History] guaiFENesin SYRUP 100MG/5ML [Robitussin] 200 mg PO Q6HR PRN 11/23/23 [History] predniSONE [Deltasone] 40 mg PO DAILY 11/23/23 [History] Budesonide [Pulmicort] 0.5 mg INHALATION RT-BID ml 12/01/23 [Rx] Gabapentin 300 mg PO DAILY #3 cap 12/01/23 [Rx] Gabapentin 600 mg PO HS #2 cap 12/01/23 [Rx] Heparin Sodium,Porcine (1 ml) [Heparin Sodium] 5,000 unit SQ Q12HR each 12/01/23 [Rx] INSULIN ASPART (NovoLOG) [NovoLOG (formulary)] 0 unit SQ ACHS each 12/01/23 [Rx] INSULIN ASPART (NovoLOG) [NovoLOG (formulary)] 7 unit SQ AC-TID each 12/01/23 [Rx] Insulin Detemir (Levemir) [Levemir] 27 unit SQ DAILY@0700 each 12/01/23 [Rx] Ipratropium-Albuterol Nebulize [Duoneb 0.5 mg-3 mg/3 ml Soln] 3 ml INHALATION RT-QID each 12/01/23 [Rx] LORazepam [Ativan] 0.5 mg PO HS #2 tab 12/01/23 [Rx] glipiZIDE [Glucotrol] 5 mg PO AC-BID tab 12/01/23 [Rx] traMADol HCl [Ultram] 50 mg PO BID #4 tab 12/01/23 [Rx] Follow up Appointment(s)/Referral(s): Thaddeus Remy MD [STAFF PHYSICIAN] - 1 Week [facility], [NON-STAFF] - As Needed Davy Kaplan MD [Primary Care Provider] - 1-2 Days Activity/Diet/Wound Care/Special Instructions: Patient is returning to [facility] Activity as tolerated Recommend follow-up with primary care provider on discharge Follow-up with pulmonary outpatient Continue with DuoNeb's along with Pulmicort Continue monitoring Accu-Cheks before meals and at bedtime and continue current insulin regimen Continue consistent carb and dysphasia 3 chopped diet with aspiration precautions with head of the bed elevated 45 at all times and supervision with meals Discharge Disposition: TRANSFER TO SNF/ECF
[2023-12-01 16:06] VITALS: BP 109/44; RESP 18
[2023-12-01 16:28] VITALS: PULSE 64
[2023-12-01 16:32] LABS: Appearance,BF Turbid (Clear); RBC, Body Fluid 5000 /UL (0-2000)
[2023-12-02] MEDS ORDERED: predniSONE 10 MG TAB PO SCH (09:00)
[2023-12-02 09:25] LABS: Nucleated Cells, Body Fluid 226000 /UL
--- NOTE | 2023-12-04 19:21 | CDI ---
Documentation Clarification Form Date: 12/04/2023 07:03:04 PM From: Massiel Samuels Phone: Admit Date: 11/23/2023 02:54:00 PM Patient Name: Jania Serrato Visit Number: [id number] Discharge Date: 12/01/2023 02:26:00 PM ATTENTION: The Clinical Documentation Specialists (CDI) and [facility] Coding Staff appreciate your assistance in clarifying documentation. Please respond to the clarification below the line at the bottom and electronically sign. The CDI & [facility] Coding staff will review the response and follow-up if needed. Please note: Queries are made part of the Legal Health Record. If you have any questions, please contact the author of this message via ITS. Dr. Roberto Schreiber Your patient has diagnostic/radiology results: Rt BAL Corynebacterium striatum and Adalgisa albicans. Please clarify if there is an additional diagnosis and/or clinical significance related to this result. History/Risk Factors: 83yo F, Bilatelectasisin the RML and LLL, acute tracheobronchitis, AHRF, dysphagia, PAF, DMII w hyperglycemia d/t steroid, HLD, HTN, sleep apnea, hypothyroidism, morbid obesity, CAD s/p stent Clinical indicators: Transferfrom [place] was treated as an OP for PNA later r/o. VS: 124/70 57 22 97.5 96% 3/L NC 11/23 Labs WBC 10.9 BUN 31 CR 1.18 Procalcitonin 0.09 Treatment: Pt maintained on Abx and received 5 days of IV Abxtherapyandwill notrequire further Abx per pulmonary and recommending OP f/u. Pt on 3 L via NC and continue to wean FiO2 as tolerated. Continued on incentive spirometer and needs encouragement with using. Pt to continue a prednisone taper and currently on 30 mg daily and DuoNeb Tx along with inhalers and was seen and evaluated byspeech therapyrecommending dysphagia3 chopped diet and recommendAspprecautionswith head of the [id number] andsupervisionwith meals. Is there an additional diagnosis and/or clinical significance related to the above diagnostic/radiology result? [ ] Corynebacterium striatum and Adalgisa albicans [ ] Corynebacterium striatum only [ x ] Adalgisa albicans only [ ] Result is not clinically significant (no additional diagnosis) [ ] Other, please specify [ ] Unable to determine (Template Last Reviewed: December 2020) MTDD
== END 2023-12-01 14:26 | DRG 202 ==
LOC: EC 14:06 → 4SSUR 14:54
PROVIDERS: ADMIT Internal Medicine; ATTEND Internal Medicine
PROC: 0BCB8ZZ Extirpation of Matter from Left Lower Lobe Bronchus, Via Natural or Artificial Opening Endoscopic (ICD-10-PCS; 2023-11-29)
PROC: 0BC38ZZ Extirpation of Matter from Right Main Bronchus, Via Natural or Artificial Opening Endoscopic (ICD-10-PCS; 2023-11-29)
PROC: 0BC78ZZ Extirpation of Matter from Left Main Bronchus, Via Natural or Artificial Opening Endoscopic (ICD-10-PCS; 2023-11-29)
PROC: 0BC68ZZ Extirpation of Matter from Right Lower Lobe Bronchus, Via Natural or Artificial Opening Endoscopic (ICD-10-PCS; 2023-11-29)
PROC: 0B9F8ZX Drainage of Right Lower Lung Lobe, Via Natural or Artificial Opening Endoscopic, Diagnostic (ICD-10-PCS; 2023-11-29)
PROC: 0BC18ZZ Extirpation of Matter from Trachea, Via Natural or Artificial Opening Endoscopic (ICD-10-PCS; principal; 2023-11-29 11:00)
DX: J98.09 Other diseases of bronchus, not elsewhere classified (principal); J96.01 Acute respiratory failure with hypoxia; J44.0 Chronic obstructive pulmonary disease with (acute) lower respiratory infection; J44.1 Chronic obstructive pulmonary disease with (acute) exacerbation; Z68.41 Body mass index [BMI] 40.0-44.9, adult; J98.11 Atelectasis; B37.89 Other sites of candidiasis; E11.40 Type 2 diabetes mellitus with diabetic neuropathy, unspecified; E66.01 Morbid (severe) obesity due to excess calories; E11.65 Type 2 diabetes mellitus with hyperglycemia; I48.0 Paroxysmal atrial fibrillation; I10 Essential (primary) hypertension; E03.9 Hypothyroidism, unspecified; G25.2 Other specified forms of tremor; Z66 Do not resuscitate; I25.10 Atherosclerotic heart disease of native coronary artery without angina pectoris; J20.9 Acute bronchitis, unspecified; H91.90 Unspecified hearing loss, unspecified ear; T38.0X5A Adverse effect of glucocorticoids and synthetic analogues, initial encounter; R13.10 Dysphagia, unspecified; J98.4 Other disorders of lung; E78.5 Hyperlipidemia, unspecified; G47.30 Sleep apnea, unspecified; Z96.653 Presence of artificial knee joint, bilateral; Z11.52 Encounter for screening for COVID-19; Z99.3 Dependence on wheelchair; Z87.01 Personal history of pneumonia (recurrent); Z95.5 Presence of coronary angioplasty implant and graft; Z79.82 Long term (current) use of aspirin; Z79.02 Long term (current) use of antithrombotics/antiplatelets; Z79.85 Long-term (current) use of injectable non-insulin antidiabetic drugs; Z79.890 Hormone replacement therapy; Z79.84 Long term (current) use of oral hypoglycemic drugs; Z79.52 Long term (current) use of systemic steroids; Z79.899 Other long term (current) drug therapy
CPT/HCPCS: 31624; 36415; 71045; 74230; 80048; 80053; 83036; 84145; 85025; 85379; 86738; 87070; 87075; 87102; 87116; 87205; 87206; 87449; 87496; 87498; 87502; 87529; 87634; 87635; 87636; 87798; 89050; 94640; 94760; 96365; 96366; 99285